=== PATIENT | male | born 1955 | race Two or more races ===

== ENCOUNTER 2017-02-24 09:14 | Inpatient (IN) | payer MEDICAID ==
[~2017-02-24] VITALS: Ht 172.7 cm; Wt 75.8 kg
[~2017-02-24 09:14] MED LIST: DICL25TA PO; DOCU-137 PO; ENAL2.5T; ETOD400T PO; FENO145T20 PO; FER325T PO; GABA300C8 PO; GLIP-116; HYDR-3546 OR; INSUPOW
[2017-02-24 09:51] LABS: Basophils # (auto) 0 uL; Basophils % (auto) 0.4 % (0.0-2.0); Eosinophils # (auto) 0 uL; Eosinophils % (auto) 0.6 % (0.0-7.0); Hematocrit 30.9 % (41.0-53.0); Lymphocytes # (auto) 1.9 uL; Lymphocytes % (auto) 24.3 % (10.0-50.0); Mean Corpuscular Hemoglobin 31.3 pg (28.0-32.0); Mean Corpuscular Hgb Conc. 32.4 g/dL (32.0-36.0); Mean Corpuscular Volume 96.7 fL (80.0-100.0); Mean Platelet Volume 7.7 fL (7.4-10.4); Monocytes # (auto) 0.5 uL; Monocytes % (auto) 6.9 % (0.0-12.0); Neutrophils # (auto) 5.3 uL; Neutrophils % (auto) 67.8 % (37.0-80.0); Platelet Count (auto) 288 10^3/uL (140-450); Red Cell Distribution Width 14.6 % (11.6-16.0); White Blood Cell 7.9 10^3/uL (4.4-10.8)
[2017-02-24 10:09] LABS: BUN/Creatinine Ratio 28.2; Calcium 8.2 mg/dL (8.5-10.1); Potassium 4.4 mmol/L (3.5-5.1)
[2017-02-24] MEDS ORDERED: FUROSEMIDE 40 MG/4 ML VIAL IV ONE (15:45)
[2017-02-24] MEDS ORDERED: MORPHINE SULFATE 4 MG/ML SYRG IV ONE (15:45)
[2017-02-24] MEDS ORDERED: ASPirin 81 mg TAB PO ONE (15:45)
[2017-02-24] MEDS ORDERED: ONDANSETRON HCL 4 MG/2 ML VIAL IV ONE (15:45)
[2017-02-24] MEDS ORDERED: FUROSEMIDE 40 MG/4 ML VIAL ONE (15:53)
[2017-02-24 16:24] LABS: Magnesium 2.3 mg/dL (1.6-2.6)
[2017-02-24 16:58] LABS: B-Type Natriuretic Peptide 658.19 pg/mL (0-100); Temperature: 23.1 C (20.0-25.0)
[2017-02-24] MEDS ORDERED: DOCUSATE SOD 100 MG CAP PO PRN (18:45)
[2017-02-24] MEDS ORDERED: DEXTROSE (50%) 50ML SYRG IV PRN (18:45)
[2017-02-24] MEDS ORDERED: ACETAMINOPHEN 325 MG TAB PO PRN (18:45)
[2017-02-24] MEDS ORDERED: NITROGLYCERIN 0.4 MG SL TAB SL PRN (18:45)
[2017-02-24] MEDS ORDERED: TEMAZEPAM 15 MG CAP PO PRN (18:45)
[2017-02-24] MEDS ORDERED: MORPHINE SULF INJ 2 MG/ML SYRINGE 1ML IV PRN (18:45)
[2017-02-24] MEDS ORDERED: ONDANSETRON HCL 4 MG/2 ML VIAL IV PRN (18:45)
[2017-02-24] MEDS: MULTIPLE VITAMIN TAB PO SCH (19:01)
[2017-02-24 21:54] VITALS: BP 146/72
[2017-02-24] MEDS ORDERED: InsuLIN REG 1unit/0.01ml Soln (100units/ml) SC SCH (22:00)
[2017-02-24] MEDS ORDERED: ACCU-CHEK COMFORT CURVE STRIP VI SCH (22:00)
[2017-02-24] MEDS: POTASSIUM CHL 10 Meq TABLET PO SCH (22:39)
[2017-02-24] MEDS: SODIUM CHLOR 0.9% PF (SALINE LOCK) 10ML VIAL IV SCH (22:39)
[2017-02-24] MEDS: FAMOTIDINE 20 MG TAB PO SCH (22:40)
[2017-02-24] MEDS: GABAPENTIN 300 MG CAP PO SCH (22:40)
[2017-02-24] MEDS: CYCLOBENZAPRINE HCL 10 MG TAB PO SCH (22:40)
[2017-02-24] MEDS: ENALAPRIL MALEATE 2.5 MG TAB PO SCH (22:41)
[2017-02-24] MEDS: oxyCODONE ER 20 MG TAB PO SCH (22:41)
[2017-02-24] MEDS: IBUPROFEN 800 MG TAB PO SCH (22:41)
[2017-02-24] MEDS: INSULIN DETEMIR(LEVEMIR) 1unit/0.01ml Soln (100units/ml) SC SCH (23:06)
[2017-02-25] VITALS (7 sets, daily range): BP systolic 98–146; BP diastolic 55–72
[2017-02-25] MEDS ORDERED: DEXTROSE (50%) 50ML SYRG IV PRN (01:30)
[2017-02-25] MEDS: ACCU-CHEK COMFORT CURVE STRIP VI SCH ×5 (04:06→21:44)
[2017-02-25] MEDS: InsuLIN REG 1unit/0.01ml Soln (100units/ml) SC SCH ×5 (04:06→20:00)
[2017-02-25 05:51] LABS: Basophils # (auto) 0.1 uL; Basophils % (auto) 0.8 % (0.0-2.0); Eosinophils # (auto) 0.1 uL; Hematocrit 31.6 % (41.0-53.0); Hemoglobin 10.3 g/dL (13.5-17.5); Lymphocytes # (auto) 3.5 uL; Lymphocytes % (auto) 42.6 % (10.0-50.0); Mean Corpuscular Hemoglobin 31.4 pg (28.0-32.0); Mean Corpuscular Hgb Conc. 32.5 g/dL (32.0-36.0); Mean Corpuscular Volume 96.6 fL (80.0-100.0); Mean Platelet Volume 7.9 fL (7.4-10.4); Monocytes # (auto) 0.5 uL; Monocytes % (auto) 6.6 % (0.0-12.0); Platelet Count (auto) 302 10^3/uL (140-450); Red Cell Distribution Width 14.6 % (11.6-16.0); White Blood Cell 8.1 10^3/uL (4.4-10.8)
[2017-02-25] MEDS: FUROSEMIDE 40 MG/4 ML VIAL IV SCH ×2 (06:05→18:29)
[2017-02-25] MEDS: CYCLOBENZAPRINE HCL 10 MG TAB PO SCH ×3 (06:05→22:35)
[2017-02-25] MEDS: SODIUM CHLOR 0.9% PF (SALINE LOCK) 10ML VIAL IV SCH ×3 (06:05→22:38)
[2017-02-25 06:15] LABS: Chloride 109 mmol/L (98-107); Potassium 3.7 mmol/L (3.5-5.1); Sodium 145 mmol/L (136-145)
[2017-02-25] MEDS: glipiZIDE 5 MG TAB PO SCH ×2 (06:18→18:00)
[2017-02-25 06:23] LABS: Albumin 2.9 g/dL (3.4-5.0); Anion Gap 9 (5-15); Aspartate Aminotransferase 15 U/L (15-37); BUN/Creatinine Ratio 34.8; Blood Urea Nitrogen 24 mg/dL (7-18); Calcium 8.4 mg/dL (8.5-10.1); Carbon Dioxide 27 mmol/L (21-32); GFR African American 149 mL/min; GFR Non-African American 123 mL/min; Glucose 109 mg/dL (74-106)
[2017-02-25 06:30] LABS: Alkaline Phosphatase 68 U/L (45-117); Bilirubin, Total 0.3 mg/dL (0.2-1.0)
[2017-02-25] MEDS ORDERED: InsuLIN REG 1unit/0.01ml Soln (100units/ml) SC SCH (07:00)
[2017-02-25] MEDS: ENALAPRIL MALEATE 2.5 MG TAB PO SCH ×2 (10:00→22:37)
[2017-02-25] MEDS: INSULIN DETEMIR(LEVEMIR) 1unit/0.01ml Soln (100units/ml) SC SCH ×2 (10:00→22:39)
[2017-02-25] MEDS: MULTIPLE VITAMIN TAB PO SCH (11:22)
[2017-02-25] MEDS: oxyCODONE ER 20 MG TAB PO SCH ×2 (11:22→22:37)
[2017-02-25] MEDS: IBUPROFEN 800 MG TAB PO SCH ×2 (11:22→22:38)
[2017-02-25] MEDS: GABAPENTIN 300 MG CAP PO SCH ×2 (11:22→22:35)
[2017-02-25] MEDS: POTASSIUM CHL 10 Meq TABLET PO SCH ×2 (11:22→22:36)
[2017-02-25] MEDS: FAMOTIDINE 20 MG TAB PO SCH ×2 (11:22→22:35)
[2017-02-25] MEDS: OXYCODONE W/ ACETAMINOPHEN 5/325MG TABLET PO PRN ×2 (13:41→18:30)
[2017-02-26] MEDS: ACCU-CHEK COMFORT CURVE STRIP VI SCH ×4 (00:41→11:49)
[2017-02-26 05:00] VITALS: BP 112/65
[2017-02-26] MEDS: InsuLIN REG 1unit/0.01ml Soln (100units/ml) SC SCH ×4 (05:18→11:50)
[2017-02-26] MEDS: CYCLOBENZAPRINE HCL 10 MG TAB PO SCH ×2 (06:00→13:50)
[2017-02-26] MEDS: SODIUM CHLOR 0.9% PF (SALINE LOCK) 10ML VIAL IV SCH ×2 (06:01→13:50)
[2017-02-26] MEDS: FUROSEMIDE 40 MG/4 ML VIAL IV SCH (06:01)
[2017-02-26] MEDS: glipiZIDE 5 MG TAB PO SCH (06:01)
[2017-02-26 06:31] LABS: Basophils # (auto) 0 uL; Basophils % (auto) 0.5 % (0.0-2.0); Eosinophils # (auto) 0.1 uL; Eosinophils % (auto) 1.2 % (0.0-7.0); Hematocrit 33.4 % (41.0-53.0); Hemoglobin 11.1 g/dL (13.5-17.5); Lymphocytes # (auto) 3.8 uL; Lymphocytes % (auto) 41.4 % (10.0-50.0); Mean Corpuscular Hemoglobin 31.9 pg (28.0-32.0); Mean Corpuscular Hgb Conc. 33.3 g/dL (32.0-36.0); Mean Platelet Volume 7.5 fL (7.4-10.4); Monocytes # (auto) 0.7 uL; Monocytes % (auto) 7.7 % (0.0-12.0); Neutrophils # (auto) 4.5 uL; Neutrophils % (auto) 49.2 % (37.0-80.0); Platelet Count (auto) 335 10^3/uL (140-450); Red Cell Distribution Width 14.5 % (11.6-16.0); White Blood Cell 9.1 10^3/uL (4.4-10.8)
[2017-02-26 06:57] LABS: Albumin 2.9 g/dL (3.4-5.0); BUN/Creatinine Ratio 39.5; Bilirubin, Total 0.5 mg/dL (0.2-1.0); Calcium 8.7 mg/dL (8.5-10.1); Potassium 3.6 mmol/L (3.5-5.1); Total Protein 6.5 g/dL (6.4-8.2)
[2017-02-26 08:26] LABS: Urine Bilirubin Negative (Negative); Urine Blood Negative /uL (Negative); Urine Color Colorless (Yellow); Urine Glucose Normal (Normal); Urine Ketone Negative (Negative); Urine Nitrite Negative (Negative); Urine RBC 3 /hpf (0 - 3); Urine Squamous Epithelial Cell FEW /hpf (<5); Urine Urobilinogen Normal (Negative)
[2017-02-26] MEDS: ENALAPRIL MALEATE 2.5 MG TAB PO SCH (09:19)
[2017-02-26] MEDS: INSULIN DETEMIR(LEVEMIR) 1unit/0.01ml Soln (100units/ml) SC SCH (09:20)
[2017-02-26 09:24] VITALS: BP 92/54
[2017-02-26] MEDS: POTASSIUM CHL 10 Meq TABLET PO SCH (10:37)
[2017-02-26] MEDS: MULTIPLE VITAMIN TAB PO SCH (10:37)
[2017-02-26] MEDS: GABAPENTIN 300 MG CAP PO SCH (10:37)
[2017-02-26] MEDS: IBUPROFEN 800 MG TAB PO SCH (10:37)
[2017-02-26] MEDS: oxyCODONE ER 20 MG TAB PO SCH (10:38)
[2017-02-26] MEDS: FAMOTIDINE 20 MG TAB PO SCH (10:38)
[2017-02-26 12:30] VITALS: BP 118/71
[2017-02-26 14:15] VITALS: BP 92/54
== END 2017-02-26 18:30 | disposition home or self-care (01) | DRG 194 ==
LOC: ER 09:18 → TELE 19:09 → TELE-WESTW 21:27
PROVIDERS: ADMIT Internal Medicine; ATTEND Internal Medicine
DX: I11.0 Hypertensive heart disease with heart failure (principal); E44.0 Moderate protein-calorie malnutrition; E83.51 Hypocalcemia; D63.8 Anemia in other chronic diseases classified elsewhere; E10.9 Type 1 diabetes mellitus without complications; E78.5 Hyperlipidemia, unspecified; I50.43 Acute on chronic combined systolic (congestive) and diastolic (congestive) heart failure; M94.0 Chondrocostal junction syndrome [Tietze]; M19.90 Unspecified osteoarthritis, unspecified site; M79.7 Fibromyalgia; Z82.49 Family history of ischemic heart disease and other diseases of the circulatory system; Z68.25 Body mass index [BMI] 25.0-25.9, adult; Z83.3 Family history of diabetes mellitus; Z79.899 Other long term (current) drug therapy; Z90.89 Acquired absence of other organs
CPT/HCPCS: 36415; 71010; 80048; 80053; 81001; 82962; 83036; 83735; 83880; 84484; 85025; 87081; 87086; 93005; 93306; 93970; 94761; 96374; 96375; J1815; J2405

== ENCOUNTER 2017-03-18 19:43 | Emergency (ER) | payer MEDICAID ==
[~2017-03-18] VITALS: Ht 172.7 cm; Wt 78.9 kg
[2017-03-18 20:57] LABS: Basophils # (auto) 0 uL; Basophils % (auto) 0.6 % (0.0-2.0); Eosinophils # (auto) 0 uL; Eosinophils % (auto) 0.2 % (0.0-7.0); Hematocrit 31.5 % (41.0-53.0); Hemoglobin 10.7 g/dL (13.5-17.5); Lymphocytes # (auto) 1.8 uL; Lymphocytes % (auto) 22.6 % (10.0-50.0); Mean Corpuscular Hemoglobin 32.1 pg (28.0-32.0); Mean Corpuscular Volume 94.4 fL (80.0-100.0); Mean Platelet Volume 7.7 fL (7.4-10.4); Monocytes # (auto) 0.5 uL; Neutrophils # (auto) 5.8 uL; Neutrophils % (auto) 70.6 % (37.0-80.0); Platelet Count (auto) 295 10^3/uL (140-450); Red Cell Distribution Width 13.9 % (11.6-16.0); White Blood Cell 8.2 10^3/uL (4.4-10.8)
[2017-03-18 21:11] LABS: INR 0.92 (0.9-1.15); Partial Thromboplastin Time 25.7 sec (22.64-33.71); Prothrombin Time 9.9 sec (9.37-12.3)
[2017-03-18 21:19] LABS: Albumin 3.7 g/dL (3.4-5.0); Anion Gap 7 (5-15); Aspartate Aminotransferase 14 U/L (15-37); Blood Urea Nitrogen 24 mg/dL (7-18); Calcium 8.3 mg/dL (8.5-10.1); Carbon Dioxide 25 mmol/L (21-32); Chloride 107 mmol/L (98-107); GFR African American 79 mL/min; GFR Non-African American 65 mL/min; Glucose 380 mg/dL (74-106); Magnesium 2.3 mg/dL (1.6-2.6); Potassium 4.6 mmol/L (3.5-5.1); Sodium 139 mmol/L (136-145)
[2017-03-18 21:24] LABS: Alkaline Phosphatase 128 U/L (45-117); Bilirubin, Total 0.4 mg/dL (0.2-1.0); Total Protein 7.1 g/dL (6.4-8.2)
[2017-03-18 21:34] LABS: B-Type Natriuretic Peptide 121.68 pg/mL (0-100); Temperature: 22.2 C (20.0-25.0)
[2017-03-18 22:34] LABS: Urine Bilirubin Negative (Negative); Urine Blood Negative /uL (Negative); Urine Color Yellow (Yellow); Urine Ketone Negative (Negative); Urine Nitrite Negative (Negative); Urine RBC 1 /hpf (0 - 3); Urine Squamous Epithelial Cell FEW /hpf (<5); Urine Urobilinogen Normal (Negative); Urine pH 5.5 (5.0-8.0)
[2017-03-18 22:35] LABS: Urine Glucose 4+ mg/dL (Normal)
[2017-03-19] MEDS ORDERED: InsuLIN REG 1unit/0.01ml Soln (100units/ml) IV ONE (01:15)
[2017-03-19] MEDS ORDERED: MORPHINE SULFATE 10 MG/ML INJ 1ML SDV IV ONE (01:15)
[2017-03-19] MEDS ORDERED: ONDANSETRON HCL 4 MG/2 ML VIAL IV ONE (01:15)
[2017-03-19] MEDS ORDERED: KETOROLAC TROMETH 30 MG/ML 1ML VIAL IV ONE (01:15)
[2017-03-19 04:38] VITALS: BP 162/77
== END 2017-03-19 04:42 | disposition home or self-care (01) ==
LOC: ER 19:44
DX: R07.89 Other chest pain (principal); M54.32 Sciatica, left side; E11.9 Type 2 diabetes mellitus without complications; I10 Essential (primary) hypertension; M79.605 Pain in left leg; G40.909 Epilepsy, unspecified, not intractable, without status epilepticus; E78.5 Hyperlipidemia, unspecified; M19.90 Unspecified osteoarthritis, unspecified site; R06.02 Shortness of breath
CPT/HCPCS: 36415; 71010; 80053; 81001; 82962; 83735; 83880; 84484; 85025; 85610; 85730; 93971; 96374; 96375; 99285; J1815; J1885; J2270; J2405; 93005

== ENCOUNTER 2017-05-10 19:54 | Emergency (ER) | payer MEDICAID ==
[~2017-05-10] VITALS: Ht 172.7 cm; Wt 78.0 kg
[~2017-05-10 19:54] MED LIST changes: +GABA-497 PO; -GABA300C8 PO
[2017-05-10] MEDS ORDERED: cloNIDine HCL 0.1 MG TAB ONE (20:17)
[2017-05-10] MEDS ORDERED: cloNIDine HCL 0.1 MG TAB PO ONE (20:30)
[2017-05-11] MEDS ORDERED: KETOROLAC TROMETH 60MG/2ML VIAL IM ONE (01:30)
[2017-05-11 01:53] LABS: Urine Bilirubin Negative (Negative); Urine Blood Negative /uL (Negative); Urine Color Yellow (Yellow); Urine Hyaline Cast FEW /lpf (0 - 2); Urine Ketone Negative (Negative); Urine Nitrite Negative (Negative); Urine RBC 2 /hpf (0 - 3); Urine Squamous Epithelial Cell FEW /hpf (<5); Urine Urobilinogen Normal (Negative)
[2017-05-11 01:57] LABS: Urine Glucose 4+ mg/dL (Normal)
[2017-05-11 02:52] LABS: Basophils # (auto) 0.1 uL; Basophils % (auto) 0.5 % (0.0-2.0); CONDITION Y; Eosinophils # (auto) 0 uL; Eosinophils % (auto) 0.5 % (0.0-7.0); Hematocrit 32.5 % (41.0-53.0); Hemoglobin 10.7 g/dL (13.5-17.5); Lymphocytes # (auto) 3.4 uL; Lymphocytes % (auto) 33.5 % (10.0-50.0); Mean Corpuscular Hemoglobin 31.3 pg (28.0-32.0); Mean Platelet Volume 9.6 fL (7.4-10.4); Monocytes # (auto) 0.6 uL; Monocytes % (auto) 6.4 % (0.0-12.0); Neutrophils # (auto) 5.9 uL; Neutrophils % (auto) 59.1 % (37.0-80.0); Platelet Count (auto) 233 10^3/uL (140-450); Red Cell Distribution Width 13.7 % (11.6-16.0)
[2017-05-11 02:59] LABS: Albumin 3.4 g/dL (3.4-5.0); Calcium 8.4 mg/dL (8.5-10.1); Potassium 4.1 mmol/L (3.5-5.1)
[2017-05-11 03:02] LABS: Bilirubin, Total 0.5 mg/dL (0.2-1.0); Total Protein 7.1 g/dL (6.4-8.2)
[2017-05-11 04:30] VITALS: BP 114/60
== END 2017-05-11 04:34 | disposition home or self-care (01) ==
LOC: ER 19:54
DX: M19.90 Unspecified osteoarthritis, unspecified site (principal); M25.551 Pain in right hip; D64.9 Anemia, unspecified; M54.5 Low back pain; E11.9 Type 2 diabetes mellitus without complications; E78.5 Hyperlipidemia, unspecified; I10 Essential (primary) hypertension; Z79.4 Long term (current) use of insulin; Z90.49 Acquired absence of other specified parts of digestive tract; Z87.891 Personal history of nicotine dependence
CPT/HCPCS: 36415; 72100; 73502; 80053; 81001; 82962; 85025; 96372; 99285; J1885

== ENCOUNTER 2017-06-05 14:13 | Inpatient (IN) | payer MEDICAID ==
[~2017-06-05] VITALS: Ht 172.7 cm; Wt 75.5 kg
[2017-06-05 15:25] LABS: Basophils # (auto) 0 uL; Basophils % (auto) 0.2 % (0.0-2.0); CONDITION Y; Eosinophils # (auto) 0 uL; Eosinophils % (auto) 0.2 % (0.0-7.0); Hematocrit 38.1 % (41.0-53.0); Hemoglobin 12.8 g/dL (13.5-17.5); Lymphocytes # (auto) 1.4 uL; Lymphocytes % (auto) 17.6 % (10.0-50.0); Mean Corpuscular Hemoglobin 31.4 pg (28.0-32.0); Mean Corpuscular Hgb Conc. 33.6 g/dL (32.0-36.0); Mean Corpuscular Volume 93.3 fL (80.0-100.0); Mean Platelet Volume 9.6 fL (7.4-10.4); Monocytes # (auto) 0.4 uL; Monocytes % (auto) 4.9 % (0.0-12.0); Neutrophils # (auto) 5.9 uL; Neutrophils % (auto) 77.1 % (37.0-80.0); Platelet Count (auto) 256 10^3/uL (140-450); Red Cell Distribution Width 13.8 % (11.6-16.0); White Blood Cell 7.7 10^3/uL (4.4-10.8)
[2017-06-05 15:36] LABS: Albumin 3.3 g/dL (3.4-5.0); BUN/Creatinine Ratio 34.7; Potassium 4.7 mmol/L (3.5-5.1)
[2017-06-05 15:44] LABS: Bilirubin, Total 0.7 mg/dL (0.2-1.0); Total Protein 7.2 g/dL (6.4-8.2)
[2017-06-05] MEDS ORDERED: SODIUM CHLORIDE 0.9% 1,000 ML IVB ONE (17:08)
[2017-06-05] MEDS ORDERED: SODIUM CHLORIDE 0.9% 1,000 ML IV ONE (17:15)
[2017-06-05 17:28] LABS: Allen Test Modified; Blood 02Sat 95.3 % (96-100); Blood COHb 0.1 % (0.5-1.5); Blood MetHb 0.3 % (0.0-1.5); HCO3 17.6 mmol/L (22-26.0); HHb 4.7 % (0.0-5.0); MODE ROOM AIR; O2Hb 94.9 % (94.0-97.0); PCO2 29.8 mmHg (35.0-45.0); PCO2(T) 29.8 mmHg (35.0-45.0); PO2 84.7 mmHg (80.0-100.0); PO2(T) 84.7 mmHg (80.0-100.0); Sample Type Arterial
[2017-06-05 17:40] LABS: Magnesium 2.7 mg/dL (1.6-2.6)
[2017-06-05] MEDS ORDERED: DEXTROSE (50%) 50ML SYRG IV PRN ×2 (17:45→21:15)
[2017-06-05 17:48] LABS: INR 0.95 (0.9-1.15); Partial Thromboplastin Time 25.2 sec (22.64-33.71); Prothrombin Time 10.3 sec (9.37-12.3)
[2017-06-05] MEDS ORDERED: InsuLIN R (HUMAN) 100 UNITS in SODIUM CHL 0.9% 99 ML IV SCH (18:15)
[2017-06-05] MEDS: ACCU-CHEK COMFORT CURVE STRIP VI SCH ×4 (19:30→22:30)
[2017-06-05] MEDS: SODIUM CHLORIDE 0.9% 1,000 ML IV SCH ×3 (19:31→21:13)
[2017-06-05] MEDS ORDERED: LACTULOSE 20Gm/30ML SOLN PO PRN (21:15)
[2017-06-05] MEDS ORDERED: MORPHINE SULF INJ 2 MG/ML SYRINGE 1ML IV PRN (21:15)
[2017-06-05] MEDS ORDERED: NITROGLYCERIN 0.4 MG SL TAB SL PRN (21:15)
[2017-06-05] MEDS ORDERED: SODIUM CHLORIDE 0.9% 1,000 ML IV SCH ×2 (21:35→23:35)
[2017-06-05] MEDS: InsuLIN REG 1unit/0.01ml Soln (100units/ml) SC SCH (22:30)
[2017-06-05 23:01] LABS: BUN/Creatinine Ratio 45.5; Calcium 8.1 mg/dL (8.5-10.1); Potassium 3.5 mmol/L (3.5-5.1)
[2017-06-05 23:49] LABS: Urine Bilirubin Negative (Negative); Urine Blood TRACE /uL (Negative); Urine Color Yellow (Yellow); Urine Nitrite Negative (Negative); Urine RBC 1 /hpf (0 - 3); Urine Squamous Epithelial Cell FEW /hpf (<5); Urine Urobilinogen Normal (Negative)
[2017-06-05 23:56] LABS: Urine Glucose 4+ mg/dL (Normal); Urine Ketone 1+ (Negative)
[2017-06-06] MEDS: MORPHINE SULF INJ 2 MG/ML SYRINGE 1ML IV PRN ×5 (00:50→20:50)
[2017-06-06] MEDS: ACCU-CHEK COMFORT CURVE STRIP VI SCH ×5 (01:54→23:16)
[2017-06-06] MEDS: InsuLIN REG 1unit/0.01ml Soln (100units/ml) SC SCH ×6 (01:54→23:16)
[2017-06-06] MEDS: SODIUM CHLORIDE 0.9% 1,000 ML IV SCH ×4 (03:55→23:17)
[2017-06-06 05:30] VITALS: BP 107/55
[2017-06-06 06:42] LABS: BUN/Creatinine Ratio 48.9; Calcium 8.4 mg/dL (8.5-10.1); Potassium 3.6 mmol/L (3.5-5.1)
[2017-06-06 06:59] LABS: Basophils # (auto) 0 uL; Basophils % (auto) 0.5 % (0.0-2.0); CONDITION Y; Eosinophils # (auto) 0.1 uL; Eosinophils % (auto) 0.7 % (0.0-7.0); Hematocrit 31.6 % (41.0-53.0); Hemoglobin 10.9 g/dL (13.5-17.5); Lymphocytes # (auto) 3.4 uL; Lymphocytes % (auto) 41.7 % (10.0-50.0); Mean Corpuscular Hemoglobin 31.9 pg (28.0-32.0); Mean Corpuscular Hgb Conc. 34.5 g/dL (32.0-36.0); Mean Corpuscular Volume 92.6 fL (80.0-100.0); Mean Platelet Volume 8.8 fL (7.4-10.4); Monocytes # (auto) 0.5 uL; Monocytes % (auto) 6.6 % (0.0-12.0); Neutrophils # (auto) 4.1 uL; Neutrophils % (auto) 50.5 % (37.0-80.0); Platelet Count (auto) 230 10^3/uL (140-450); Red Cell Distribution Width 13.9 % (11.6-16.0); White Blood Cell 8.1 10^3/uL (4.4-10.8)
[2017-06-06 07:50] LABS: Albumin 2.8 g/dL (3.4-5.0); BUN/Creatinine Ratio 53.7; Bilirubin, Total 0.5 mg/dL (0.2-1.0); Calcium 8.1 mg/dL (8.5-10.1); Potassium 3.4 mmol/L (3.5-5.1); Total Protein 5.9 g/dL (6.4-8.2)
[2017-06-06 09:00] VITALS: BP 123/61
[2017-06-06] MEDS: PANTOPRAZOLE SODIUM 40 MG/10 ML VIAL IV SCH (09:58)
[2017-06-06] MEDS: ENALAPRIL MALEATE 10 MG TAB PO SCH (09:59)
[2017-06-06] MEDS ORDERED: POTASSIUM CHLORIDE 20 MEQ, LIDOCAINE 1% (LOCAL ANESTH.) 2 ML in SODIUM CHL 0.9% 100 ML IV ONE (10:00)
[2017-06-06] MEDS: FUROSEMIDE 20 MG TAB PO SCH (10:00)
[2017-06-06 13:00] VITALS: BP 121/68
[2017-06-06 14:16] LABS: BUN/Creatinine Ratio 31.4; Calcium 8.1 mg/dL (8.5-10.1); Potassium 3.7 mmol/L (3.5-5.1)
[2017-06-06 17:02] VITALS: BP 138/72
[2017-06-06 22:00] VITALS: BP 134/81
[2017-06-06] MEDS ORDERED: ACETAMINOPHEN 325 MG TAB PO ONE (22:06)
[2017-06-06] MEDS ORDERED: ACETAMINOPHEN 325 MG TAB PO PRN (22:15)
[2017-06-07] MEDS: MORPHINE SULF INJ 2 MG/ML SYRINGE 1ML IV PRN ×3 (01:35→11:29)
[2017-06-07] MEDS: ONDANSETRON HCL 4 MG/2 ML VIAL IV PRN ×3 (01:35→11:29)
[2017-06-07 05:00] VITALS: BP 138/67
[2017-06-07] MEDS: ACCU-CHEK COMFORT CURVE STRIP VI SCH ×2 (05:38→11:19)
[2017-06-07] MEDS: InsuLIN REG 1unit/0.01ml Soln (100units/ml) SC SCH ×2 (05:39→11:29)
[2017-06-07] MEDS: SODIUM CHLORIDE 0.9% 1,000 ML IV SCH ×2 (06:03→11:19)
[2017-06-07 06:30] LABS: Basophils # (auto) 0 uL; Basophils % (auto) 0.5 % (0.0-2.0); CONDITION Y; Eosinophils # (auto) 0 uL; Eosinophils % (auto) 0.7 % (0.0-7.0); Hematocrit 37.3 % (41.0-53.0); Hemoglobin 12.5 g/dL (13.5-17.5); Lymphocytes # (auto) 3.2 uL; Lymphocytes % (auto) 44.1 % (10.0-50.0); Mean Corpuscular Hemoglobin 31.8 pg (28.0-32.0); Mean Corpuscular Hgb Conc. 33.4 g/dL (32.0-36.0); Mean Platelet Volume 9.5 fL (7.4-10.4); Monocytes # (auto) 0.4 uL; Monocytes % (auto) 5.6 % (0.0-12.0); Neutrophils # (auto) 3.6 uL; Neutrophils % (auto) 49.1 % (37.0-80.0); Platelet Count (auto) 235 10^3/uL (140-450); Red Cell Distribution Width 14.3 % (11.6-16.0); White Blood Cell 7.3 10^3/uL (4.4-10.8)
[2017-06-07 07:01] LABS: Albumin 3.1 g/dL (3.4-5.0); BUN/Creatinine Ratio 24.1; Bilirubin, Total 0.4 mg/dL (0.2-1.0); Calcium 8.2 mg/dL (8.5-10.1); Magnesium 2.4 mg/dL (1.6-2.6); Potassium 3.9 mmol/L (3.5-5.1); Total Protein 6.7 g/dL (6.4-8.2)
[2017-06-07 09:00] VITALS: BP 129/70
[2017-06-07] MEDS: PANTOPRAZOLE SODIUM 40 MG/10 ML VIAL IV SCH (09:46)
[2017-06-07] MEDS: ENALAPRIL MALEATE 10 MG TAB PO SCH (09:47)
[2017-06-07] MEDS: FUROSEMIDE 20 MG TAB PO SCH (09:49)
[2017-06-07 13:00] VITALS: BP 132/72
[2017-06-07 13:43] VITALS: BP 132/72
[2017-06-07 14:02] VITALS: BP 132/72
== END 2017-06-07 14:40 | disposition home or self-care (01) | DRG 249 ==
LOC: ER 14:13 → TELE 14:14 → TELE-CENTR 23:43
PROVIDERS: ADMIT Family Medicine; ATTEND Internal Medicine
DX: K52.9 Noninfective gastroenteritis and colitis, unspecified (principal); E11.40 Type 2 diabetes mellitus with diabetic neuropathy, unspecified; E44.0 Moderate protein-calorie malnutrition; E11.65 Type 2 diabetes mellitus with hyperglycemia; I10 Essential (primary) hypertension; M19.90 Unspecified osteoarthritis, unspecified site; E87.6 Hypokalemia; E86.0 Dehydration; E87.1 Hypo-osmolality and hyponatremia; G40.909 Epilepsy, unspecified, not intractable, without status epilepticus; Z82.49 Family history of ischemic heart disease and other diseases of the circulatory system; Z83.3 Family history of diabetes mellitus; Z68.25 Body mass index [BMI] 25.0-25.9, adult
CPT/HCPCS: 36415; 36600; 71010; 74176; 80048; 80053; 81001; 82010; 82150; 82805; 82962; 83036; 83690; 83735; 85025; 85610; 85730; 93005; 94761; 96361; 96365; 96375; C9113; J1815; J2001; J2405

== ENCOUNTER 2017-06-22 10:05 | Emergency (ER) | payer MEDICAID ==
[~2017-06-22 10:05] MED LIST changes: -DICL25TA PO
[2017-06-22 10:14] VITALS: BP 114/66
== END 2017-06-22 11:39 | disposition home or self-care (01) ==
LOC: ER 10:05
DX: S90.32XA Contusion of left foot, initial encounter (principal); M19.90 Unspecified osteoarthritis, unspecified site; E11.9 Type 2 diabetes mellitus without complications; I10 Essential (primary) hypertension; E78.5 Hyperlipidemia, unspecified; Z90.89 Acquired absence of other organs; W01.0XXA Fall on same level from slipping, tripping and stumbling without subsequent striking against object, initial encounter; Y93.89 Activity, other specified; Y92.89 Other specified places as the place of occurrence of the external cause; Y99.8 Other external cause status
CPT/HCPCS: 73502; 73562; 73630; 99284; J7030

== ENCOUNTER 2017-07-16 13:44 | Observation (INO) | payer MEDICAID ==
[~2017-07-16] VITALS: Ht 172.7 cm; Wt 74.8 kg
[2017-07-16 14:28] LABS: Basophils # (auto) 0.1 uL; Basophils % (auto) 1.1 % (0.0-2.0); Eosinophils # (auto) 0.2 uL; Eosinophils % (auto) 2.4 % (0.0-7.0); Hematocrit 35.8 % (41.0-53.0); Lymphocytes % (auto) 43.1 % (10.0-50.0); Mean Corpuscular Hemoglobin 32.2 pg (28.0-32.0); Mean Corpuscular Hgb Conc. 33.5 g/dL (32.0-36.0); Mean Corpuscular Volume 96.1 fL (80.0-100.0); Monocytes # (auto) 0.5 uL; Monocytes % (auto) 6.6 % (0.0-12.0); Neutrophils # (auto) 3.3 uL; Neutrophils % (auto) 46.8 % (37.0-80.0); Platelet Count (auto) 241 10^3/uL (140-450); Red Cell Distribution Width 14.9 % (11.6-16.0)
[2017-07-16] MEDS ORDERED: ASPirin 81 mg TAB PO ONE (14:30)
[2017-07-16 14:56] LABS: INR 0.94 (0.9-1.15); Partial Thromboplastin Time 26.7 sec (22.64-33.71); Prothrombin Time 10.2 sec (9.37-12.3)
[2017-07-16 15:00] LABS: Albumin 3.6 g/dL (3.4-5.0); Alkaline Phosphatase 67 U/L (45-117); Anion Gap 8 (5-15); Aspartate Aminotransferase 16 U/L (15-37); BUN/Creatinine Ratio 26.4; Bilirubin, Total 0.5 mg/dL (0.2-1.0); Blood Urea Nitrogen 23 mg/dL (7-18); Carbon Dioxide 24 mmol/L (21-32); Chloride 109 mmol/L (98-107); GFR African American 114 mL/min; GFR Non-African American 95 mL/min; Glucose 146 mg/dL (74-106); Magnesium 2.5 mg/dL (1.6-2.6); Potassium 4.1 mmol/L (3.5-5.1); Sodium 141 mmol/L (136-145); Total Protein 7.3 g/dL (6.4-8.2)
[2017-07-16 15:11] LABS: B-Type Natriuretic Peptide 62.54 pg/mL (0-100)
[2017-07-16 15:22] LABS: Temperature: 22.3 C (20.0-25.0)
[2017-07-16] MEDS ORDERED: HYDROcodone-ACET 10/325MG TAB PO ONE (15:45)
[2017-07-16 17:08] VITALS: BP 146/77
[2017-07-16] MEDS ORDERED: MORPHINE SULF INJ 2 MG/ML SYRINGE 1ML IM ONE (17:15)
[2017-07-16] MEDS ORDERED: PROMETHAZINE HCL 25 MG/ML 1ML IM ONE (17:15)
== END 2017-07-16 19:06 | disposition home or self-care (01) | DRG 203 ==
LOC: ER 13:44 → OVERFLOW 14:29 → ER 19:06
PROVIDERS: ADMIT Family Medicine; ATTEND Family Medicine
DX: R07.89 Other chest pain (principal); E11.40 Type 2 diabetes mellitus with diabetic neuropathy, unspecified; I10 Essential (primary) hypertension; R94.6 Abnormal results of thyroid function studies; M19.90 Unspecified osteoarthritis, unspecified site; D64.9 Anemia, unspecified; E78.5 Hyperlipidemia, unspecified; Z82.49 Family history of ischemic heart disease and other diseases of the circulatory system; Z83.3 Family history of diabetes mellitus; Z87.891 Personal history of nicotine dependence
CPT/HCPCS: 36415; 71010; 80053; 83735; 83880; 84443; 84484; 85025; 85379; 85610; 85730; 93005; 96372; 99285; G0378; J2270; J2550

== ENCOUNTER 2018-07-07 16:33 | Emergency (ER) | payer MEDICARE, MEDICAID ==
[~2018-07-07] VITALS: Ht 172.7 cm; Wt 68.9 kg
[~2018-07-07 16:33] MED LIST changes: -DOCU-137 PO; -ETOD400T PO; -FENO145T20 PO; -FER325T PO; -GABA-497 PO; +GABA300C10 PO; -HYDR-3546 OR
[2018-07-07 19:00] LABS: Basophils # (auto) 0.1 uL; Basophils % (auto) 0.7 % (0.0-2.0); Eosinophils # (auto) 0 uL; Eosinophils % (auto) 0.4 % (0.0-7.0); Hematocrit 40.3 % (41.0-53.0); Hemoglobin 14.3 g/dL (13.5-17.5); Lymphocytes # (auto) 1.8 uL; Lymphocytes % (auto) 21.7 % (10.0-50.0); Mean Corpuscular Hemoglobin 33.6 pg (28.0-32.0); Mean Corpuscular Hgb Conc. 35.4 g/dL (32.0-36.0); Monocytes # (auto) 0.3 uL; Monocytes % (auto) 3.7 % (0.0-12.0); Neutrophils # (auto) 6.1 uL; Neutrophils % (auto) 73.5 % (37.0-80.0); Platelet Count (auto) 225 10^3/uL (140-450); Red Blood Cells 4.24 10^6/uL (4.5-5.90); Red Cell Distribution Width 12.9 % (11.8-14.3); White Blood Cell 8.3 10^3/uL (4.4-10.8)
[2018-07-07 19:15] LABS: Calcium 9.1 mg/dL (8.5-10.1)
[2018-07-07 19:19] LABS: Albumin 3.9 g/dL (3.4-5.0); BUN/Creatinine Ratio 23.2
[2018-07-07 19:22] LABS: Bilirubin, Total 0.7 mg/dL (0.2-1.0); Total Protein 8.2 g/dL (6.4-8.2)
[2018-07-07 21:16] VITALS: BP 143/76
== END 2018-07-07 21:20 | disposition home or self-care (01) ==
LOC: ER 16:35
DX: K59.00 Constipation, unspecified (principal); E11.9 Type 2 diabetes mellitus without complications; E78.5 Hyperlipidemia, unspecified; I10 Essential (primary) hypertension; M19.90 Unspecified osteoarthritis, unspecified site; Z87.891 Personal history of nicotine dependence; Z79.4 Long term (current) use of insulin
CPT/HCPCS: 36415; 74176; 80053; 85025; 93005; 99285; J7030

== ENCOUNTER 2020-04-14 18:05 | Emergency (ER) | payer OTHER, MEDICAID ==
[~2020-04-14] VITALS: Ht 172.7 cm; Wt 62.6 kg
[~2020-04-14 18:05] MED LIST changes: -GLIP-116; +GLIP10TA9; +LEVO500T21 PO; +PERCOT PO
[2020-04-14 18:34] VITALS: BP 141/50
== END 2020-04-14 20:23 | disposition home or self-care (01) ==
LOC: ER 18:05
DX: S96.911A Strain of unspecified muscle and tendon at ankle and foot level, right foot, initial encounter (principal); E11.9 Type 2 diabetes mellitus without complications; E78.5 Hyperlipidemia, unspecified; I10 Essential (primary) hypertension; Z87.891 Personal history of nicotine dependence; W18.39XA Other fall on same level, initial encounter; Y93.89 Activity, other specified; Y92.89 Other specified places as the place of occurrence of the external cause; Y99.8 Other external cause status
CPT/HCPCS: 71045; 73502; 73610; 73630

== ENCOUNTER 2020-06-26 15:16 | Emergency (ER) | payer OTHER, MEDICAID ==
[~2020-06-26] VITALS: Ht 172.7 cm; Wt 64.4 kg
[~2020-06-26 15:16] MED LIST changes: -ENAL2.5T; +ENAL2.5T7
[2020-06-26 15:54] VITALS: BP 141/76
[2020-06-26 17:10] LABS: Basophils # (auto) 0.1 10 ^3/uL (0-0.2); Basophils % (auto) 1.2 % (0.0-2.0); Eosinophils # (auto) 0.1 10 ^3/uL (0-0.8); Eosinophils % (auto) 1.4 % (0.0-7.0); Hematocrit 39.9 % (41.0-53.0); Hemoglobin 13.3 g/dL (13.5-17.5); Lymphocytes # (auto) 2.5 10 ^3/uL (0.4-5.4); Lymphocytes % (auto) 31.3 % (10.0-50.0); Mean Corpuscular Hemoglobin 31.3 pg (28.0-32.0); Mean Corpuscular Hgb Conc. 33.4 g/dL (32.0-36.0); Mean Corpuscular Volume 93.7 fL (80.0-100.0); Monocytes # (auto) 0.4 10 ^3/uL (0-1.3); Monocytes % (auto) 5.2 % (0.0-12.0); Neutrophils # (auto) 4.9 10 ^3/uL (1.6-8.6); Neutrophils % (auto) 60.9 % (37.0-80.0); Nucleated Red Blood Cells % 0.1 %; Platelet Count (auto) 273 10^3/uL (140-450); Red Blood Cells 4.25 10^6/uL (4.5-5.90); Red Cell Distribution Width 13.5 % (11.8-14.3); White Blood Cell 8.1 10^3/uL (4.4-10.8)
[2020-06-26 17:19] LABS: Anion Gap 7 (5-15); Blood Urea Nitrogen 19 mg/dL (7-18); Calcium 9.2 mg/dL (8.5-10.1); Carbon Dioxide 23 mmol/L (21-32); Chloride 108 mmol/L (98-107); Glucose 258 mg/dL (74-106); Potassium 3.8 mmol/L (3.5-5.1); Sodium 138 mmol/L (136-145)
[2020-06-26 17:25] LABS: Alanine Aminotransferase 19 U/L (16-61); Alkaline Phosphatase 94 U/L (45-117); Aspartate Aminotransferase 16 U/L (15-37); BUN/Creatinine Ratio 21.8; Bilirubin, Total 0.8 mg/dL (0.2-1.0); GFR African American 113 mL/min; GFR Non-African American 94 mL/min; Total Protein 7.8 g/dL (6.4-8.2)
[2020-06-26 20:05] LABS: Urine Bacteria NONE SEEN /hpf (None Seen); Urine Blood Negative /uL (Negative); Urine Hyaline Cast FEW /lpf (0 - 2); Urine Mucus FEW (None Seen); Urine Specific Gravity 1.025 (1.001-1.035); Urine WBC 11 /hpf (0 - 3)
== END 2020-06-26 19:25 | disposition left against medical advice (07) ==
LOC: ER 15:16
DX: R10.84 Generalized abdominal pain (principal); Z53.21 Procedure and treatment not carried out due to patient leaving prior to being seen by health care provider
CPT/HCPCS: 36415; 71045; 80053; 81001; 84484; 85025; 93005

== ENCOUNTER 2020-09-22 15:32 | Emergency (ER) | payer OTHER, MEDICAID ==
[~2020-09-22] VITALS: Ht 172.7 cm; Wt 61.2 kg
[2020-09-22 17:03] LABS: Basophils # (auto) 0.1 10 ^3/uL (0-0.2); Basophils % (auto) 1.2 % (0.0-2.0); Eosinophils # (auto) 0.2 10 ^3/uL (0-0.8); Eosinophils % (auto) 2.8 % (0.0-7.0); Hematocrit 34.7 % (41.0-53.0); Hemoglobin 11.6 g/dL (13.5-17.5); Lymphocytes # (auto) 1.7 10 ^3/uL (0.4-5.4); Lymphocytes % (auto) 26.8 % (10.0-50.0); Mean Corpuscular Hemoglobin 32.6 pg (28.0-32.0); Mean Corpuscular Hgb Conc. 33.5 g/dL (32.0-36.0); Mean Corpuscular Volume 97.2 fL (80.0-100.0); Monocytes # (auto) 0.5 10 ^3/uL (0-1.3); Monocytes % (auto) 7.2 % (0.0-12.0); Neutrophils # (auto) 3.9 10 ^3/uL (1.6-8.6); Platelet Count (auto) 278 10^3/uL (140-450); Red Blood Cells 3.57 10^6/uL (4.5-5.90); Red Cell Distribution Width 13.2 % (11.8-14.3); White Blood Cell 6.3 10^3/uL (4.4-10.8)
[2020-09-22 17:15] LABS: Partial Thromboplastin Time 25.2 sec (23.0-31.2)
[2020-09-22 17:20] LABS: Albumin 3.6 g/dL (3.4-5.0); Anion Gap 8 (5-15); Blood Urea Nitrogen 17 mg/dL (7-18); Calcium 8.9 mg/dL (8.5-10.1); Carbon Dioxide 24 mmol/L (21-32); Chloride 102 mmol/L (98-107); Potassium 4.3 mmol/L (3.5-5.1); Sodium 134 mmol/L (136-145)
[2020-09-22 17:29] LABS: Alanine Aminotransferase 24 U/L (16-61); Alkaline Phosphatase 138 U/L (45-117); Aspartate Aminotransferase 14 U/L (15-37); BUN/Creatinine Ratio 14.8; Bilirubin, Total 0.9 mg/dL (0.2-1.0); GFR African American 82 mL/min; GFR Non-African American 68 mL/min; Total Protein 7.5 g/dL (6.4-8.2)
[2020-09-22 17:37] LABS: Glucose 651 mg/dL (74-106)
[2020-09-22] MEDS ORDERED: DEXTROSE (50%) 50ML SYRG IV PRN (17:45)
[2020-09-22] MEDS ORDERED: InsuLIN R (HUMAN) 100 UNITS in SODIUM CHL 0.9% 99 ML IV SCH (17:45)
[2020-09-22] MEDS ORDERED: INSULIN LANTUS (GLARGINE) 1 /0.01ml (100units/ml) SC ONE (17:45)
[2020-09-22] MEDS ORDERED: SODIUM CHLORIDE 0.9% 1,000 ML IV SCH ×3 (17:45→23:45)
[2020-09-22] MEDS ORDERED: InsuLIN REG 1unit/0.01ml Soln (100units/ml) IV ONE (18:00)
[2020-09-22 18:53] LABS: Phosphorus 3.8 mg/dL (2.5-4.90)
[2020-09-22] MEDS: ACCU-CHEK COMFORT CURVE STRIP VI SCH ×2 (19:50→19:51)
[2020-09-22 19:52] VITALS: BP 142/87
[2020-09-23] MEDS ORDERED: INSULIN LANTUS (GLARGINE) 1 /0.01ml (100units/ml) SC SCH (10:00)
== END 2020-09-22 20:30 | disposition left against medical advice (07) ==
LOC: ER 15:32
DX: S05.12XA Contusion of eyeball and orbital tissues, left eye, initial encounter (principal); D64.9 Anemia, unspecified; K59.00 Constipation, unspecified; M48.01 Spinal stenosis, occipito-atlanto-axial region; E86.0 Dehydration; E11.65 Type 2 diabetes mellitus with hyperglycemia; I10 Essential (primary) hypertension; E78.5 Hyperlipidemia, unspecified; Z79.899 Other long term (current) drug therapy; W19.XXXA Unspecified fall, initial encounter; Y93.89 Activity, other specified; Y92.89 Other specified places as the place of occurrence of the external cause; Y99.8 Other external cause status
CPT/HCPCS: 36415; 36600; 70450; 70486; 71250; 72125; 72131; 74176; 80053; 82010; 82805; 82962; 83735; 83930; 84100; 84484; 85025; 85610; 85730; 93005; 96361; 96374; 99285; J1815

== ENCOUNTER 2021-12-29 17:42 | Inpatient (IN) | payer OTHER, MEDICAID ==
[~2021-12-29] VITALS: Ht 172.7 cm; Wt 61.2 kg
[~2021-12-29 17:42] MED LIST changes: -LEVO500T21 PO; +LEVO500T31 PO
[2021-12-29 19:18] LABS: Basophils # (auto) 0.1 10 ^3/uL (0-0.2); Basophils % (auto) 0.6 % (0.0-2.0); Eosinophils # (auto) 0 10 ^3/uL (0-0.8); Eosinophils % (auto) 0.3 % (0.0-7.0); Hematocrit 30.1 % (41.0-53.0); Hemoglobin 10.2 g/dL (13.5-17.5); Lymphocytes # (auto) 1.7 10 ^3/uL (0.4-5.4); Lymphocytes % (auto) 16.2 % (10.0-50.0); Mean Corpuscular Hemoglobin 32.7 pg (28.0-32.0); Mean Corpuscular Hgb Conc. 33.7 g/dL (32.0-36.0); Monocytes # (auto) 0.7 10 ^3/uL (0-1.3); Monocytes % (auto) 6.3 % (0.0-12.0); Neutrophils # (auto) 8.3 10 ^3/uL (1.6-8.6); Neutrophils % (auto) 76.6 % (37.0-80.0); Nucleated Red Blood Cells % 0.1 %; Red Blood Cells 3.11 10^6/uL (4.5-5.90); Red Cell Distribution Width 16.7 % (11.8-14.3); White Blood Cell 10.8 10^3/uL (4.4-10.8)
[2021-12-29 19:31] LABS: Calcium 8.6 mg/dL (8.5-10.1); Potassium 3.5 mmol/L (3.5-5.1)
[2021-12-29 19:36] LABS: BUN/Creatinine Ratio 18.5; Bilirubin, Total 0.6 mg/dL (0.2-1.0); Total Protein 7.1 g/dL (6.4-8.2)
[2021-12-29 23:42] LABS: Urine Bacteria NONE SEEN /hpf (None Seen); Urine Blood 1+ /uL (Negative); Urine Hyaline Cast FEW /lpf (0 - 2); Urine Specific Gravity 1.023 (1.001-1.035); Urine WBC 6 /hpf (0 - 3)
[2021-12-30] MEDS ORDERED: INSULIN LISPRO (HUMAN) 100 UNITS/ML ML SC ONE (09:30)
[2021-12-30] MEDS ORDERED: ONDANSETRON HCL 4 MG/2 ML VIAL IV PRN (13:00)
[2021-12-30] MEDS ORDERED: NITROGLYCERIN 0.4 MG SL TAB SL PRN (13:00)
[2021-12-30] MEDS ORDERED: DEXTROSE (50%) 50ML SYRG IV PRN ×2 (13:00→14:00)
[2021-12-30] MEDS ORDERED: MORPHINE SULFATE 4 MG/ML SYR/VIAL IV PRN (13:00)
[2021-12-30] MEDS ORDERED: MORPHINE SULFATE INJECTION 2 MG/ML SYRG IV PRN (13:00)
[2021-12-30] MEDS: GABAPENTIN 300 MG CAP PO SCH ×2 (14:51→21:51)
[2021-12-30] MEDS: HYDROcodone-ACET 5/325MG TAB PO PRN ×2 (15:59→20:40)
[2021-12-30] MEDS ORDERED: InsuLIN REG 1unit/0.01ml Soln (100units/ml) SC SCH ×2 (17:00→22:00)
[2021-12-30] MEDS ORDERED: ACCU-CHEK COMFORT CURVE STRIP VI SCH (17:00)
[2021-12-30] MEDS: ACCU-CHEK COMFORT CURVE STRIP VI SCH ×2 (17:53→21:51)
[2021-12-30] MEDS: InsuLIN REG 1unit/0.01ml Soln (100units/ml) SC SCH ×2 (17:55→22:05)
[2021-12-30] MEDS ORDERED: ATOR20TA50 PO (18:16)
[2021-12-30] MEDS ORDERED: NITR0.4S29 SL (18:16)
[2021-12-30] MEDS ORDERED: METF-929 PO (18:16)
[2021-12-30] MEDS ORDERED: CHOL20004 PO (18:16)
[2021-12-30] MEDS ORDERED: GLIP10TA9 PO (18:16)
[2021-12-30] MEDS ORDERED: AMIT25TA12 PO (18:16)
[2021-12-30] MEDS ORDERED: OMEP20TA PO (18:16)
[2021-12-30 20:00] VITALS: BP 138/76
[2021-12-30 22:02] VITALS: BP 138/76
[2021-12-31] MEDS: HYDROcodone-ACET 5/325MG TAB PO PRN ×4 (01:10→20:55)
[2021-12-31 05:45] VITALS: BP 112/67
[2021-12-31 05:56] LABS: Basophils # (auto) 0.1 10 ^3/uL (0-0.2); Basophils % (auto) 0.9 % (0.0-2.0); Eosinophils # (auto) 0.1 10 ^3/uL (0-0.8); Hematocrit 24.7 % (41.0-53.0); Hemoglobin 8.4 g/dL (13.5-17.5); Lymphocytes % (auto) 38.9 % (10.0-50.0); Mean Corpuscular Hemoglobin 32.5 pg (28.0-32.0); Mean Corpuscular Volume 95.3 fL (80.0-100.0); Monocytes # (auto) 0.6 10 ^3/uL (0-1.3); Monocytes % (auto) 8.3 % (0.0-12.0); Neutrophils # (auto) 3.9 10 ^3/uL (1.6-8.6); Neutrophils % (auto) 50.9 % (37.0-80.0); Nucleated Red Blood Cells % 0.1 %; Red Blood Cells 2.59 10^6/uL (4.5-5.90); Red Cell Distribution Width 17.2 % (11.8-14.3); White Blood Cell 7.6 10^3/uL (4.4-10.8)
[2021-12-31 06:13] LABS: Albumin 2.5 g/dL (3.4-5.0); Calcium 8.3 mg/dL (8.5-10.1); Potassium 3.8 mmol/L (3.5-5.1)
[2021-12-31] MEDS: GABAPENTIN 300 MG CAP PO SCH ×3 (06:14→21:53)
[2021-12-31] MEDS: DOCUSATE SOD 100 MG CAP PO PRN (06:14)
[2021-12-31 06:15] LABS: BUN/Creatinine Ratio 23.8
[2021-12-31 06:18] LABS: Bilirubin, Total 0.5 mg/dL (0.2-1.0); Total Protein 5.8 g/dL (6.4-8.2)
[2021-12-31] MEDS: ACCU-CHEK COMFORT CURVE STRIP VI SCH ×4 (06:56→21:53)
[2021-12-31] MEDS: InsuLIN REG 1unit/0.01ml Soln (100units/ml) SC SCH ×4 (06:59→21:55)
[2021-12-31 08:00] VITALS: BP_SYST 107; BP_SYST 138; BP_DIAS 59; BP_DIAS 76
[2021-12-31] MEDS: ENALAPRIL MALEATE 2.5 MG TAB PO SCH (10:00)
[2021-12-31] MEDS: ENOXAPARIN SOD 40 MG/0.4 ML SYRINGE SC SCH (10:05)
[2021-12-31 12:05] VITALS: BP 106/82
[2021-12-31] MEDS: PIPERACILLIN-TAZOB 3.375GM 100 ML IV SCH ×2 (13:53→21:53)
[2021-12-31 16:00] VITALS: BP 127/62
[2021-12-31 20:00] VITALS: BP 106/61
[2021-12-31 22:17] VITALS: BP 106/61
[2021-12-31] MEDS ORDERED: LORazepam 2MG/ML-1ML VIAL IV PRN (23:15)
[2021-12-31 23:48] LABS: Cholesterol 150 mg/dL (< 200)
[2021-12-31 23:51] LABS: HDL Cholesterol 41 mg/dL (40-59); Triglycerides 142 mg/dL (< 150)
[2022-01-01] VITALS (7 sets, daily range): BP systolic 95–108; BP diastolic 53–61
[2022-01-01] MEDS: HYDROcodone-ACET 5/325MG TAB PO PRN ×2 (02:02→09:45)
[2022-01-01] MEDS: GABAPENTIN 300 MG CAP PO SCH ×3 (06:38→21:02)
[2022-01-01] MEDS: PIPERACILLIN-TAZOB 3.375GM 100 ML IV SCH ×3 (06:38→21:01)
[2022-01-01] MEDS: ACCU-CHEK COMFORT CURVE STRIP VI SCH ×4 (06:38→21:06)
[2022-01-01] MEDS: InsuLIN REG 1unit/0.01ml Soln (100units/ml) SC SCH ×4 (06:52→21:06)
[2022-01-01] MEDS: ASPirin-EC 81 mg tab PO SCH (09:43)
[2022-01-01] MEDS: ENALAPRIL MALEATE 2.5 MG TAB PO SCH (09:44)
[2022-01-01] MEDS: ENOXAPARIN SOD 40 MG/0.4 ML SYRINGE SC SCH (09:44)
[2022-01-01] MEDS: DOCUSATE SOD 100 MG CAP PO PRN (09:45)
[2022-01-01 10:08] LABS: Basophils # (auto) 0.1 10 ^3/uL (0-0.2); Basophils % (auto) 1.6 % (0.0-2.0); Eosinophils # (auto) 0.1 10 ^3/uL (0-0.8); Eosinophils % (auto) 0.9 % (0.0-7.0); Hematocrit 25.2 % (41.0-53.0); Hemoglobin 8.4 g/dL (13.5-17.5); Lymphocytes # (auto) 2.8 10 ^3/uL (0.4-5.4); Mean Corpuscular Hgb Conc. 33.4 g/dL (32.0-36.0); Mean Corpuscular Volume 95.8 fL (80.0-100.0); Monocytes # (auto) 0.4 10 ^3/uL (0-1.3); Monocytes % (auto) 6.3 % (0.0-12.0); Neutrophils # (auto) 3.2 10 ^3/uL (1.6-8.6); Neutrophils % (auto) 49.2 % (37.0-80.0); Nucleated Red Blood Cells % 0.1 %; Red Blood Cells 2.64 10^6/uL (4.5-5.90); Red Cell Distribution Width 16.8 % (11.8-14.3); White Blood Cell 6.6 10^3/uL (4.4-10.8)
[2022-01-01 10:20] LABS: Albumin 2.3 g/dL (3.4-5.0); Calcium 8.2 mg/dL (8.5-10.1); Potassium 3.2 mmol/L (3.5-5.1)
[2022-01-01 10:22] LABS: BUN/Creatinine Ratio 19.8
[2022-01-01 10:24] LABS: Bilirubin, Total 0.3 mg/dL (0.2-1.0); Total Protein 5.7 g/dL (6.4-8.2)
[2022-01-01 10:30] LABS: Folate (Folic Acid) 8.37 ng/mL (5.38-24)
[2022-01-01] MEDS: ACETAMINOPHEN 325 MG TAB PO PRN (18:41)
[2022-01-01] MEDS: ATORVASTATIN 20 MG TAB PO SCH (21:02)
[2022-01-02] VITALS (7 sets, daily range): BP systolic 94–113; BP diastolic 47–61
[2022-01-02] MEDS: TEMAZEPAM 15 MG CAP PO PRN (01:05)
[2022-01-02] MEDS: HYDROcodone-ACET 5/325MG TAB PO PRN (01:05)
[2022-01-02] MEDS: PIPERACILLIN-TAZOB 3.375GM 100 ML IV SCH ×3 (05:51→21:39)
[2022-01-02] MEDS: ACCU-CHEK COMFORT CURVE STRIP VI SCH ×4 (06:02→21:40)
[2022-01-02] MEDS: GABAPENTIN 300 MG CAP PO SCH ×3 (06:10→21:40)
[2022-01-02] MEDS: InsuLIN REG 1unit/0.01ml Soln (100units/ml) SC SCH ×4 (06:10→21:46)
[2022-01-02] MEDS: POTASSIUM CHL 20 Meq TABLET PO SCH (09:36)
[2022-01-02] MEDS: ASPirin-EC 81 mg tab PO SCH (09:36)
[2022-01-02] MEDS: ENOXAPARIN SOD 40 MG/0.4 ML SYRINGE SC SCH (09:37)
[2022-01-02] MEDS: ENALAPRIL MALEATE 2.5 MG TAB PO SCH (09:37)
[2022-01-02] MEDS: ATORVASTATIN 20 MG TAB PO SCH (21:39)
[2022-01-03] VITALS (7 sets, daily range): BP systolic 106–157; BP diastolic 55–81
[2022-01-03] MEDS: GABAPENTIN 300 MG CAP PO SCH ×3 (06:24→21:21)
[2022-01-03] MEDS: ACCU-CHEK COMFORT CURVE STRIP VI SCH ×4 (06:24→21:22)
[2022-01-03] MEDS: InsuLIN REG 1unit/0.01ml Soln (100units/ml) SC SCH ×4 (06:26→21:22)
[2022-01-03] MEDS: PIPERACILLIN-TAZOB 3.375GM 100 ML IV SCH (06:37)
[2022-01-03] MEDS: ASPirin-EC 81 mg tab PO SCH (09:51)
[2022-01-03] MEDS: ENALAPRIL MALEATE 2.5 MG TAB PO SCH (09:51)
[2022-01-03] MEDS: POTASSIUM CHL 20 Meq TABLET PO SCH (09:51)
[2022-01-03] MEDS: ENOXAPARIN SOD 40 MG/0.4 ML SYRINGE SC SCH (09:52)
[2022-01-03] MEDS: cefTRIAXone 1GM/50ML D5W 50 ML IV SCH (13:11)
[2022-01-03] MEDS: HYDROcodone-ACET 5/325MG TAB PO PRN ×2 (15:53→21:23)
[2022-01-03] MEDS: ATORVASTATIN 20 MG TAB PO SCH (21:21)
[2022-01-04 05:00] VITALS: BP 132/51
[2022-01-04] MEDS: ACCU-CHEK COMFORT CURVE STRIP VI SCH ×4 (06:16→21:32)
[2022-01-04] MEDS: GABAPENTIN 300 MG CAP PO SCH ×3 (06:16→21:31)
[2022-01-04] MEDS: InsuLIN REG 1unit/0.01ml Soln (100units/ml) SC SCH ×4 (06:28→21:32)
[2022-01-04 08:43] VITALS: BP 95/53
[2022-01-04] MEDS: cefTRIAXone 1GM/50ML D5W 50 ML IV SCH (09:11)
[2022-01-04] MEDS: ASPirin-EC 81 mg tab PO SCH (09:11)
[2022-01-04] MEDS: ENOXAPARIN SOD 40 MG/0.4 ML SYRINGE SC SCH (09:12)
[2022-01-04] MEDS: POTASSIUM CHL 20 Meq TABLET PO SCH (09:12)
[2022-01-04] MEDS: ENALAPRIL MALEATE 2.5 MG TAB PO SCH (09:12)
[2022-01-04] MEDS: HYDROcodone-ACET 5/325MG TAB PO PRN (11:51)
[2022-01-04 13:00] VITALS: BP 158/65
[2022-01-04 16:49] VITALS: BP 151/38
[2022-01-04 20:00] VITALS: BP 129/51
[2022-01-04 21:21] VITALS: BP 129/51
[2022-01-04] MEDS: ATORVASTATIN 20 MG TAB PO SCH (21:31)
[2022-01-05] MEDS: ACETAMINOPHEN 325 MG TAB PO PRN (00:36)
[2022-01-05 04:38] VITALS: BP 134/51
[2022-01-05 05:18] LABS: Basophils # (auto) 0.1 10 ^3/uL (0-0.2); Basophils % (auto) 0.8 % (0.0-2.0); Eosinophils # (auto) 0.1 10 ^3/uL (0-0.8); Eosinophils % (auto) 1.1 % (0.0-7.0); Hematocrit 24.6 % (41.0-53.0); Hemoglobin 8.5 g/dL (13.5-17.5); Lymphocytes # (auto) 2.3 10 ^3/uL (0.4-5.4); Lymphocytes % (auto) 27.2 % (10.0-50.0); Mean Corpuscular Hemoglobin 33.5 pg (28.0-32.0); Mean Corpuscular Hgb Conc. 34.5 g/dL (32.0-36.0); Mean Corpuscular Volume 97.1 fL (80.0-100.0); Monocytes # (auto) 0.5 10 ^3/uL (0-1.3); Monocytes % (auto) 5.4 % (0.0-12.0); Neutrophils # (auto) 5.6 10 ^3/uL (1.6-8.6); Neutrophils % (auto) 65.5 % (37.0-80.0); Red Blood Cells 2.54 10^6/uL (4.5-5.90); White Blood Cell 8.5 10^3/uL (4.4-10.8)
[2022-01-05 05:49] LABS: Potassium 4.2 mmol/L (3.5-5.1)
[2022-01-05 05:57] LABS: Albumin 2.4 g/dL (3.4-5.0); BUN/Creatinine Ratio 25.5; Calcium 8.8 mg/dL (8.5-10.1)
[2022-01-05 06:02] LABS: Bilirubin, Total 0.3 mg/dL (0.2-1.0); Total Protein 5.9 g/dL (6.4-8.2)
[2022-01-05] MEDS: ACCU-CHEK COMFORT CURVE STRIP VI SCH ×4 (06:46→21:48)
[2022-01-05] MEDS: InsuLIN REG 1unit/0.01ml Soln (100units/ml) SC SCH ×4 (06:46→21:50)
[2022-01-05] MEDS: GABAPENTIN 300 MG CAP PO SCH ×3 (06:47→21:48)
[2022-01-05] MEDS: cefTRIAXone 1GM/50ML D5W 50 ML IV SCH (09:00)
[2022-01-05] MEDS: ASPirin-EC 81 mg tab PO SCH (10:00)
[2022-01-05] MEDS: ENALAPRIL MALEATE 2.5 MG TAB PO SCH (10:00)
[2022-01-05] MEDS: ENOXAPARIN SOD 40 MG/0.4 ML SYRINGE SC SCH (10:00)
[2022-01-05] MEDS: POTASSIUM CHL 20 Meq TABLET PO SCH (10:00)
[2022-01-05] MEDS: HYDROcodone-ACET 5/325MG TAB PO PRN (13:45)
[2022-01-05 14:08] VITALS: BP 129/54
[2022-01-05 16:00] VITALS: BP 150/68
[2022-01-05 20:00] VITALS: BP 105/62
[2022-01-05] MEDS: ATORVASTATIN 20 MG TAB PO SCH (21:48)
[2022-01-05 22:00] VITALS: BP 105/62
[2022-01-06] VITALS (7 sets, daily range): BP systolic 105–140; BP diastolic 57–68
[2022-01-06] MEDS: GABAPENTIN 300 MG CAP PO SCH ×3 (06:24→21:43)
[2022-01-06] MEDS: ACCU-CHEK COMFORT CURVE STRIP VI SCH ×4 (06:24→21:43)
[2022-01-06] MEDS: InsuLIN REG 1unit/0.01ml Soln (100units/ml) SC SCH ×4 (06:32→21:51)
[2022-01-06] MEDS: cefTRIAXone 1GM/50ML D5W 50 ML IV SCH (09:28)
[2022-01-06] MEDS: ASPirin-EC 81 mg tab PO SCH (09:29)
[2022-01-06] MEDS: POTASSIUM CHL 20 Meq TABLET PO SCH (09:29)
[2022-01-06] MEDS: ENALAPRIL MALEATE 2.5 MG TAB PO SCH (09:30)
[2022-01-06] MEDS: ENOXAPARIN SOD 40 MG/0.4 ML SYRINGE SC SCH (09:30)
[2022-01-06] MEDS: HYDROcodone-ACET 5/325MG TAB PO PRN (18:11)
[2022-01-06] MEDS: ATORVASTATIN 20 MG TAB PO SCH (21:42)
[2022-01-07 05:00] VITALS: BP 129/44
[2022-01-07] MEDS: GABAPENTIN 300 MG CAP PO SCH ×3 (06:30→20:47)
[2022-01-07] MEDS: ACCU-CHEK COMFORT CURVE STRIP VI SCH ×4 (06:30→20:48)
[2022-01-07] MEDS: InsuLIN REG 1unit/0.01ml Soln (100units/ml) SC SCH ×4 (06:31→20:48)
[2022-01-07 09:00] VITALS: BP 114/44
[2022-01-07 09:01] LABS: LDL Cholesterol 94 mg/dL (< 100)
[2022-01-07] MEDS: ENOXAPARIN SOD 40 MG/0.4 ML SYRINGE SC SCH (09:35)
[2022-01-07] MEDS: ASPirin-EC 81 mg tab PO SCH (09:35)
[2022-01-07] MEDS: POTASSIUM CHL 20 Meq TABLET PO SCH (09:36)
[2022-01-07] MEDS: ENALAPRIL MALEATE 2.5 MG TAB PO SCH (09:36)
[2022-01-07] MEDS: cefTRIAXone 1GM/50ML D5W 50 ML IV SCH (09:38)
[2022-01-07] MEDS: HYDROcodone-ACET 5/325MG TAB PO PRN ×2 (09:54→18:41)
[2022-01-07 13:00] VITALS: BP 108/65
[2022-01-07 17:00] VITALS: BP 111/49
[2022-01-07] MEDS: ATORVASTATIN 20 MG TAB PO SCH (20:47)
[2022-01-07 22:00] VITALS: BP 126/50
[2022-01-07] MEDS: ACETAMINOPHEN 325 MG TAB PO PRN (23:11)
[2022-01-07] MEDS: TEMAZEPAM 15 MG CAP PO PRN (23:11)
[2022-01-08] MEDS: HYDROcodone-ACET 5/325MG TAB PO PRN ×4 (02:46→18:32)
[2022-01-08 05:00] VITALS: BP 145/68
[2022-01-08] MEDS: GABAPENTIN 300 MG CAP PO SCH ×2 (05:27→18:32)
[2022-01-08] MEDS: ACCU-CHEK COMFORT CURVE STRIP VI SCH ×3 (05:28→17:00)
[2022-01-08] MEDS: InsuLIN REG 1unit/0.01ml Soln (100units/ml) SC SCH ×3 (05:43→18:33)
[2022-01-08 08:00] VITALS: BP 113/52
[2022-01-08] MEDS: cefTRIAXone 1GM/50ML D5W 50 ML IV SCH (10:52)
[2022-01-08] MEDS: POTASSIUM CHL 20 Meq TABLET PO SCH (10:53)
[2022-01-08] MEDS: ASPirin-EC 81 mg tab PO SCH (10:53)
[2022-01-08] MEDS: ENOXAPARIN SOD 40 MG/0.4 ML SYRINGE SC SCH (10:54)
[2022-01-08] MEDS: ENALAPRIL MALEATE 2.5 MG TAB PO SCH (10:54)
[2022-01-08 12:00] VITALS: BP 127/53
[2022-01-08 16:00] VITALS: BP 109/50
[2022-01-08 18:01] VITALS: BP 109/50
== END 2022-01-08 19:55 | DRG 689 ==
LOC: ER 17:42 → EDBD 17:42 → TELE 12-30 12:56 → TELE-WESTW 12-30 17:15
PROVIDERS: ADMIT Nurse Practitioner; ATTEND Nurse Practitioner
DX: N39.0 Urinary tract infection, site not specified (principal); G93.41 Metabolic encephalopathy; I16.1 Hypertensive emergency; E44.0 Moderate protein-calorie malnutrition; E11.65 Type 2 diabetes mellitus with hyperglycemia; Z20.822 Contact with and (suspected) exposure to COVID-19; E11.40 Type 2 diabetes mellitus with diabetic neuropathy, unspecified; E78.5 Hyperlipidemia, unspecified; M19.90 Unspecified osteoarthritis, unspecified site; F17.200 Nicotine dependence, unspecified, uncomplicated; Z79.899 Other long term (current) drug therapy; Z80.0 Family history of malignant neoplasm of digestive organs; Z80.1 Family history of malignant neoplasm of trachea, bronchus and lung; Z80.3 Family history of malignant neoplasm of breast; Z80.42 Family history of malignant neoplasm of prostate; Z80.8 Family history of malignant neoplasm of other organs or systems; Z81.8 Family history of other mental and behavioral disorders; Z82.0 Family history of epilepsy and other diseases of the nervous system; Z82.3 Family history of stroke; Z82.49 Family history of ischemic heart disease and other diseases of the circulatory system; Z82.5 Family history of asthma and other chronic lower respiratory diseases; Z82.62 Family history of osteoporosis; Z83.3 Family history of diabetes mellitus; Z86.73 Personal history of transient ischemic attack (TIA), and cerebral infarction without residual deficits; Z68.20 Body mass index [BMI] 20.0-20.9, adult; Z79.84 Long term (current) use of oral hypoglycemic drugs
CPT/HCPCS: 36415; 70450; 70551; 71045; 80053; 80061; 81001; 82607; 82746; 82962; 83036; 83880; 84443; 84484; 85025; 87081; 87426; 93005; 93306; 93886; 95819; 96372; 97116; 97530; G0378; J0696; J1815; J2543

== ENCOUNTER 2023-09-15 15:41 | Inpatient (IN) | payer OTHER, MEDICAID ==
[~2023-09-15] VITALS: Ht 170.2 cm; Wt 56.6 kg
[~2023-09-15 15:41] MED LIST changes: +AMIT25TA20 PO; +ATOR20TA50 PO; +CHOL20004 PO; +ENAL1TAB42; -ENAL2.5T7; +GABA-1250 PO; -GABA300C10 PO; -GLIP10TA9; +GLIP10TA9 PO; -INSUPOW; +METF-929 PO; +NITR0.4S29 SL; +OMEP20TA PO
[2023-09-15 16:25] LABS: Basophils # (auto) 0 10 ^3/uL (0-0.2); Basophils % (auto) 0.5 % (0.0-2.0); Eosinophils # (auto) 0.1 10 ^3/uL (0-0.8); Eosinophils % (auto) 1.1 % (0.0-7.0); Hematocrit 32.8 % (41.0-53.0); Hemoglobin 10.6 g/dL (13.5-17.5); Lymphocytes # (auto) 1.7 10 ^3/uL (0.4-5.4); Lymphocytes % (auto) 18.1 % (10.0-50.0); Mean Corpuscular Hemoglobin 31.4 pg (28.0-32.0); Mean Corpuscular Hgb Conc. 32.3 g/dL (32.0-36.0); Mean Corpuscular Volume 97.2 fL (80.0-100.0); Monocytes # (auto) 0.6 10 ^3/uL (0-1.3); Monocytes % (auto) 6.5 % (0.0-12.0); Neutrophils # (auto) 7.1 10 ^3/uL (1.6-8.6); Neutrophils % (auto) 73.8 % (37.0-80.0); Red Blood Cells 3.37 10^6/uL (4.5-5.90); Red Cell Distribution Width 15.3 % (11.8-14.3); White Blood Cell 9.6 10^3/uL (4.4-10.8)
[2023-09-15 16:36] LABS: INR 1.05 (0.9-1.15)
[2023-09-15 17:06] LABS: Acetaminophen < 2.0 UG/ML (10.0-20.0); Alanine Aminotransferase 27 U/L (7-40); Alkaline Phosphatase 115 U/L (46-116); Anion Gap 9 (5-15); Aspartate Aminotransferase 47 U/L (13-40); BUN/Creatinine Ratio 30.6 (10.0-20.0); Blood Alcohol < 3.0 mg/dL (<10); Blood Urea Nitrogen 41 mg/dL (9-23); Carbon Dioxide 24 mmol/L (20-30); Chloride 100 mmol/L (98-107); Glucose 199 mg/dL (74-106); Lipase 26 U/L (12-53); Magnesium 2.2 mg/dL (1.6-2.6); Potassium 3.8 mmol/L (3.5-5.1); Sodium 133 mmol/L (136-145)
[2023-09-15 17:07] LABS: Bilirubin, Total 0.8 mg/dL (0.2-1.0); Total Protein 6.4 g/dL (5.7-8.2)
[2023-09-15 17:32] LABS: Salicylate < 3.0 mg/dL (2.8-20.0)
[2023-09-15] MEDS ORDERED: SODIUM CHLORIDE 0.9% 1,000 ML IV ONE (17:45)
[2023-09-15] MEDS ORDERED: ASPirin-EC 325mg tab PO ONE (17:45)
[2023-09-15] MEDS ORDERED: ROSU10TA64 PO (18:21)
[2023-09-15] MEDS ORDERED: FIN5T PO (18:21)
[2023-09-15] MEDS ORDERED: IPRATROPIUM BROM 0.5 MG/2.5ML INH SOL NEB PRN (18:30)
[2023-09-15] MEDS ORDERED: ALBUTEROL MEDNEB 2.5 mg/3ml NEB NEB PRN (18:30)
[2023-09-15] MEDS ORDERED: hydrALAZINE HCL 20 MG/ML VL IV PRN (18:30)
[2023-09-15] MEDS ORDERED: DEXTROSE (50%) 50ML SYRG IV PRN (18:30)
[2023-09-15] MEDS ORDERED: DOCUSATE SOD 100 MG CAP PO PRN (18:45)
[2023-09-15] MEDS ORDERED: NITROGLYCERIN 0.4 MG SL TAB SL PRN (18:45)
[2023-09-15] MEDS ORDERED: ONDANSETRON HCL 4 MG/2 ML VIAL IV PRN (18:45)
[2023-09-15] MEDS ORDERED: MORPHINE SULFATE INJ 2 MG/ml SYRG IV PRN (18:45)
[2023-09-15 19:45] VITALS: BP 106/65; PULSE 88; RESP 18; TEMP 98; O2SAT 99
[2023-09-15] MEDS: SODIUM CHLORIDE 0.9% 1,000 ML IV SCH (20:33)
[2023-09-15] MEDS ORDERED: LORazepam 2MG/ML-1ML VIAL IV PRN (23:15)
[2023-09-15 23:30] VITALS: PULSE 92; RESP 18; O2SAT 96
[2023-09-15] MEDS: InsuLIN REG 1unit/0.01ml Soln (100units/ml) SC SCH (23:52)
[2023-09-15] MEDS: ACCU-CHEK COMFORT CURVE STRIP VI SCH (23:52)
[2023-09-16 00:24] LABS: Amphetamine Screen, Urine Neg (NEGATIVE); Barbiturate Scree,Urine Neg (NEGATIVE); Benzodiazephine Screen, Urine Neg (NEGATIVE); Cocaine Screen, Urine Neg (NEGATIVE); Opiate Scree,Urine Pos (NEGATIVE)
[2023-09-16 00:25] LABS: Cannabinoid Screen, Urine Neg (NEGATIVE); Phencyclidine Screen, Urine Neg (NEGATIVE)
[2023-09-16 00:33] LABS: Urine Bacteria NONE SEEN /hpf (None Seen); Urine Blood Negative /uL (Negative); Urine Clarity Clear (Clear); Urine Color Colorless (Yellow); Urine Protein, UAD TRACE (Negative); Urine Specific Gravity 1.008 (1.001-1.035); Urine Urobilinogen Normal (Negative); Urine WBC 1 /hpf (0 - 3)
[2023-09-16] MEDS: SODIUM CHLORIDE 0.9% 1,000 ML IV SCH ×3 (04:48→14:06)
[2023-09-16] MEDS: InsuLIN REG 1unit/0.01ml Soln (100units/ml) SC SCH ×4 (06:13→22:00)
[2023-09-16] MEDS: ACCU-CHEK COMFORT CURVE STRIP VI SCH ×4 (06:13→22:57)
[2023-09-16 06:23] LABS: Basophils # (auto) 0 10 ^3/uL (0-0.2); Basophils % (auto) 0.4 % (0.0-2.0); Eosinophils # (auto) 0.1 10 ^3/uL (0-0.8); Eosinophils % (auto) 0.8 % (0.0-7.0); Hematocrit 30.9 % (41.0-53.0); Hemoglobin 10.4 g/dL (13.5-17.5); Lymphocytes % (auto) 11.9 % (10.0-50.0); Mean Corpuscular Hgb Conc. 33.7 g/dL (32.0-36.0); Mean Corpuscular Volume 94.9 fL (80.0-100.0); Monocytes # (auto) 0.6 10 ^3/uL (0-1.3); Monocytes % (auto) 7.2 % (0.0-12.0); Neutrophils # (auto) 6.5 10 ^3/uL (1.6-8.6); Neutrophils % (auto) 79.7 % (37.0-80.0); Nucleated Red Blood Cells % 0.1 %; Red Blood Cells 3.26 10^6/uL (4.5-5.90); Red Cell Distribution Width 15.3 % (11.8-14.3); White Blood Cell 8.2 10^3/uL (4.4-10.8)
[2023-09-16 06:47] LABS: Alanine Aminotransferase 32 U/L (7-40); Alkaline Phosphatase 103 U/L (46-116); Calcium 9.2 mg/dL (8.5-10.1); Carbon Dioxide 20 mmol/L (20-30); Chloride 107 mmol/L (98-107); Glucose 184 mg/dL (74-106); LDL Cholesterol 29 mg/dL (< 100); Triglycerides 92 mg/dL (< 150)
[2023-09-16 06:48] LABS: Anion Gap 11 (5-15); Aspartate Aminotransferase 48 U/L (13-40); BUN/Creatinine Ratio 22.4 (10.0-20.0); Bilirubin, Total 0.7 mg/dL (0.2-1.0); Cholesterol 97 mg/dL (< 200); HDL Cholesterol 46 mg/dL (40-59); Sodium 138 mmol/L (136-145); Total Protein 6.5 g/dL (5.7-8.2)
[2023-09-16 06:51] LABS: Blood Urea Nitrogen 24 mg/dL (9-23)
[2023-09-16 08:26] VITALS: PULSE 101; RESP 20; O2SAT 97
[2023-09-16] MEDS: ENOXAPARIN SOD 30 MG/0.3 ML SYRINGE SC SCH (09:10)
[2023-09-16] MEDS: FINASTERIDE 5 MG TAB PO SCH (09:10)
[2023-09-16] MEDS: ASPirin-EC 81 mg tab PO SCH (09:10)
[2023-09-16 10:58] LABS: Magnesium 2.2 mg/dL (1.6-2.6)
[2023-09-16 11:01] LABS: Phosphorus 3.1 mg/dL (2.4-5.1)
[2023-09-16 12:10] VITALS: O2SAT 97
[2023-09-16] MEDS: GABAPENTIN 300 MG CAP PO SCH ×2 (13:37→22:57)
[2023-09-16] MEDS: LISINOPRIL 10 MG TAB PO SCH (13:38)
[2023-09-16 20:00] VITALS: PULSE 98; RESP 18; O2SAT 96
[2023-09-16 22:00] VITALS: BP 128/55; PULSE 86; RESP 16; TEMP 98.4; O2SAT 97
[2023-09-16 22:36] VITALS: BP 128/55; PULSE 86; RESP 16; TEMP 98.4; O2SAT 97
[2023-09-16] MEDS: ATORVASTATIN 20 MG TAB PO SCH (22:54)
[2023-09-17] VITALS (9 sets, daily range): BP systolic 140–157; BP diastolic 64–83; PULSE 14–103; RESP 14–97; TEMP 99.1–99.8; O2SAT 95–97
[2023-09-17] MEDS: SODIUM CHLORIDE 0.9% 1,000 ML IV SCH ×2 (02:50→04:30)
[2023-09-17 06:12] LABS: Basophils # (auto) 0 10 ^3/uL (0-0.2); Basophils % (auto) 0.6 % (0.0-2.0); Eosinophils # (auto) 0 10 ^3/uL (0-0.8); Eosinophils % (auto) 0.7 % (0.0-7.0); Hematocrit 28.4 % (41.0-53.0); Hemoglobin 9.7 g/dL (13.5-17.5); Lymphocytes # (auto) 1.2 10 ^3/uL (0.4-5.4); Lymphocytes % (auto) 24.2 % (10.0-50.0); Mean Corpuscular Volume 94.1 fL (80.0-100.0); Monocytes # (auto) 0.5 10 ^3/uL (0-1.3); Monocytes % (auto) 9.2 % (0.0-12.0); Neutrophils # (auto) 3.3 10 ^3/uL (1.6-8.6); Neutrophils % (auto) 65.3 % (37.0-80.0); Red Blood Cells 3.02 10^6/uL (4.5-5.90); Red Cell Distribution Width 15.3 % (11.8-14.3); White Blood Cell 5.1 10^3/uL (4.4-10.8)
[2023-09-17] MEDS: GABAPENTIN 300 MG CAP PO SCH (06:31)
[2023-09-17] MEDS: InsuLIN REG 1unit/0.01ml Soln (100units/ml) SC SCH ×4 (06:32→22:21)
[2023-09-17] MEDS: ACCU-CHEK COMFORT CURVE STRIP VI SCH ×3 (06:32→18:03)
[2023-09-17 06:47] LABS: Alanine Aminotransferase 22 U/L (7-40); Albumin 3.5 g/dL (3.2-4.8); Alkaline Phosphatase 88 U/L (46-116); Anion Gap 8 (5-15); Aspartate Aminotransferase 26 U/L (13-40); BUN/Creatinine Ratio 18.1 (10.0-20.0); Bilirubin, Total 0.7 mg/dL (0.2-1.0); Blood Urea Nitrogen 19 mg/dL (9-23); Calcium 8.6 mg/dL (8.7-10.4); Carbon Dioxide 22 mmol/L (20-30); Chloride 110 mmol/L (98-107); Glucose 238 mg/dL (74-106); Magnesium 1.9 mg/dL (1.6-2.6); Potassium 3.1 mmol/L (3.5-5.1); Sodium 140 mmol/L (136-145); Total Protein 5.9 g/dL (5.7-8.2)
[2023-09-17 07:25] LABS: Creatinine, Urine 40.48 mg/dL (30.0-125.0)
[2023-09-17] MEDS ORDERED: POTASSIUM CHL 20 Meq TABLET PO ONE (07:30)
[2023-09-17] MEDS: ASPirin-EC 81 mg tab PO SCH (09:36)
[2023-09-17] MEDS: FINASTERIDE 5 MG TAB PO SCH (09:37)
[2023-09-17] MEDS: LISINOPRIL 10 MG TAB PO SCH (09:37)
[2023-09-17] MEDS: ENOXAPARIN SOD 30 MG/0.3 ML SYRINGE SC SCH (09:38)
[2023-09-17] MEDS: GABAPENTIN 100 MG CAP PO SCH ×2 (13:59→22:08)
[2023-09-17] MEDS ORDERED: FERR325T24 PO (16:21)
[2023-09-17] MEDS ORDERED: NAP500T PO (16:21)
[2023-09-17] MEDS ORDERED: OXY5T PO (16:21)
[2023-09-17] MEDS ORDERED: TRIA0.5C TOP (16:21)
[2023-09-17] MEDS ORDERED: SILD50TA42 PO (16:21)
[2023-09-17] MEDS ORDERED: MECL25CH85 PO (16:21)
[2023-09-17] MEDS ORDERED: CEFP200T15 PO (16:21)
[2023-09-17] MEDS ORDERED: DOCU-94 PO (16:21)
[2023-09-17] MEDS ORDERED: ERGO1CAP23 PO (16:21)
[2023-09-17] MEDS ORDERED: GABA-1250 PO (16:21)
[2023-09-17] MEDS ORDERED: IBUP-1456 PO (16:21)
[2023-09-17] MEDS ORDERED: MUPI2CRE17 EX (16:21)
[2023-09-17] MEDS ORDERED: SITA50TA PO (16:21)
[2023-09-17] MEDS ORDERED: MEGE20TA4 PO (16:21)
[2023-09-17] MEDS: ATORVASTATIN 20 MG TAB PO SCH (22:08)
[2023-09-18 05:00] VITALS: BP 123/59; PULSE 111; RESP 16; TEMP 98.1; O2SAT 98
[2023-09-18] MEDS: ACCU-CHEK COMFORT CURVE STRIP VI SCH ×5 (05:03→22:09)
[2023-09-18] MEDS: InsuLIN REG 1unit/0.01ml Soln (100units/ml) SC SCH ×4 (06:31→22:14)
[2023-09-18] MEDS: GABAPENTIN 100 MG CAP PO SCH ×3 (06:33→22:09)
[2023-09-18 07:28] LABS: Anion Gap 10 (5-15); Carbon Dioxide 19 mmol/L (20-30); Chloride 112 mmol/L (98-107); Potassium 3.5 mmol/L (3.5-5.1); Sodium 141 mmol/L (136-145)
[2023-09-18 07:30] LABS: Calcium 8.4 mg/dL (8.7-10.4)
[2023-09-18 07:34] LABS: Glucose 182 mg/dL (74-106)
[2023-09-18 07:35] LABS: BUN/Creatinine Ratio 17.5 (10.0-20.0); Blood Urea Nitrogen 17 mg/dL (9-23)
[2023-09-18 08:00] VITALS: BP 115/53; PULSE 111; PULSE 55; PULSE 94; RESP 17; TEMP 99.5; O2SAT 93
[2023-09-18 09:00] VITALS: BP 115/53; PULSE 55; RESP 17; TEMP 99.5; O2SAT 93
[2023-09-18] MEDS: FINASTERIDE 5 MG TAB PO SCH (09:27)
[2023-09-18] MEDS: ASPirin-EC 81 mg tab PO SCH (09:27)
[2023-09-18] MEDS: ENOXAPARIN SOD 30 MG/0.3 ML SYRINGE SC SCH (09:28)
[2023-09-18] MEDS: LISINOPRIL 10 MG TAB PO SCH (09:28)
[2023-09-18 13:00] VITALS: BP 111/60; PULSE 94; RESP 17; TEMP 98.9; O2SAT 95
[2023-09-18] MEDS: ACETAMINOPHEN 325 MG TAB PO PRN ×2 (16:15→22:09)
[2023-09-18 17:00] VITALS: BP 129/68; PULSE 94; RESP 18; TEMP 98.8; O2SAT 98
[2023-09-18 20:00] VITALS: BP 115/53; PULSE 55; PULSE 88; PULSE 96; RESP 17; RESP 18; TEMP 99.5; O2SAT 94
[2023-09-18] MEDS: ATORVASTATIN 20 MG TAB PO SCH (22:09)
[2023-09-19 05:00] VITALS: BP 148/79; PULSE 75; RESP 18; TEMP 98.3; O2SAT 95
[2023-09-19] MEDS: GABAPENTIN 100 MG CAP PO SCH ×2 (05:54→15:12)
[2023-09-19] MEDS: ACETAMINOPHEN 325 MG TAB PO PRN (05:58)
[2023-09-19] MEDS: ACCU-CHEK COMFORT CURVE STRIP VI SCH ×2 (06:00→11:01)
[2023-09-19] MEDS: InsuLIN REG 1unit/0.01ml Soln (100units/ml) SC SCH ×2 (06:01→11:03)
[2023-09-19 08:00] VITALS: PULSE 88
[2023-09-19 08:27] VITALS: PULSE 94; RESP 17; O2SAT 93
[2023-09-19 09:00] VITALS: BP 157/81; PULSE 81; RESP 18; TEMP 97.8; O2SAT 94
[2023-09-19] MEDS: ASPirin-EC 81 mg tab PO SCH (10:21)
[2023-09-19] MEDS: FINASTERIDE 5 MG TAB PO SCH (10:21)
[2023-09-19] MEDS: ENOXAPARIN SOD 30 MG/0.3 ML SYRINGE SC SCH (10:21)
[2023-09-19] MEDS: LISINOPRIL 10 MG TAB PO SCH (10:22)
[2023-09-19 13:00] VITALS: BP 144/87; PULSE 84; RESP 18; TEMP 97.4; O2SAT 95
[2023-09-19 14:03] VITALS: BP 157/81; TEMP 36.8
== END 2023-09-19 16:00 | DRG 280 ==
LOC: EDBD 15:41 → ER 15:41 → TELE 19:00 → TELE-WESTW 09-16 22:00
PROVIDERS: ADMIT Nurse Practitioner Family; ATTEND Internal Medicine Geriatric Medicine
DX: I21.4 Non-ST elevation (NSTEMI) myocardial infarction (principal); G93.41 Metabolic encephalopathy; N17.0 Acute kidney failure with tubular necrosis; N18.6 End stage renal disease; F11.20 Opioid dependence, uncomplicated; I12.0 Hypertensive chronic kidney disease with stage 5 chronic kidney disease or end stage renal disease; R56.9 Unspecified convulsions; E86.0 Dehydration; E11.42 Type 2 diabetes mellitus with diabetic polyneuropathy; E78.5 Hyperlipidemia, unspecified; E11.22 Type 2 diabetes mellitus with diabetic chronic kidney disease; G89.4 Chronic pain syndrome; M19.90 Unspecified osteoarthritis, unspecified site; D63.1 Anemia in chronic kidney disease; Z86.73 Personal history of transient ischemic attack (TIA), and cerebral infarction without residual deficits; Z83.3 Family history of diabetes mellitus; Z82.62 Family history of osteoporosis; Z82.5 Family history of asthma and other chronic lower respiratory diseases; Z82.49 Family history of ischemic heart disease and other diseases of the circulatory system; Z82.3 Family history of stroke; Z82.0 Family history of epilepsy and other diseases of the nervous system; Z81.8 Family history of other mental and behavioral disorders; Z80.8 Family history of malignant neoplasm of other organs or systems; Z80.42 Family history of malignant neoplasm of prostate; Z80.3 Family history of malignant neoplasm of breast; Z80.1 Family history of malignant neoplasm of trachea, bronchus and lung; Z80.0 Family history of malignant neoplasm of digestive organs; Y92.89 Other specified places as the place of occurrence of the external cause; T40.2X5A Adverse effect of other opioids, initial encounter
CPT/HCPCS: 36415; 70450; 70551; 71045; 80048; 80053; 80061; 80307; 80320; 80329; 81001; 82140; 82570; 82962; 83036; 83690; 83735; 83880; 84100; 84300; 84443; 84484; 85025; 85610; 93005; 93306; 93886; 95819; 96360; 97110; 97116; 97163; 97530; G0378; J1815

== ENCOUNTER 2023-10-11 00:32 | Inpatient (IN) | payer OTHER, MEDICAID ==
[2023-10-11] VITALS (7 sets, daily range): BP systolic 122–190; BP diastolic 48–89; PULSE 66–79; RESP 14–25; TEMP 97.5–98.1; O2SAT 95–100
[~2023-10-11] VITALS: Ht 175.3 cm; Wt 63.6 kg
[~2023-10-11 00:32] MED LIST changes: -AMIT25TA20 PO; -ATOR20TA50 PO; +CEFP200T15 PO; -CHOL20004 PO; +DOCU-94 PO; -ENAL1TAB42; +ERGO1CAP23 PO; +FERR325T24 PO; +FIN5T PO; +IBUP-1456 PO; +MECL25CH85 PO; +MEGE20TA4 PO; +MUPI2CRE17 EX; +NAP500T PO; -OMEP20TA PO; +OXY5T PO; -PERCOT PO; +ROSU10TA64 PO; +SILD50TA42 PO; +SITA50TA PO; +TRIA0.5C TOP
[2023-10-11 02:00] LABS: Basophils # (auto) 0.1 10 ^3/uL (0-0.2); Eosinophils # (auto) 0.1 10 ^3/uL (0-0.8); Eosinophils % (auto) 1.4 % (0.0-7.0); Hematocrit 32.3 % (41.0-53.0); Hemoglobin 10.4 g/dL (13.5-17.5); Lymphocytes # (auto) 2.3 10 ^3/uL (0.4-5.4); Lymphocytes % (auto) 31.9 % (10.0-50.0); Mean Corpuscular Hemoglobin 31.3 pg (28.0-32.0); Mean Corpuscular Hgb Conc. 32.1 g/dL (32.0-36.0); Mean Corpuscular Volume 97.3 fL (80.0-100.0); Monocytes # (auto) 0.7 10 ^3/uL (0-1.3); Neutrophils # (auto) 4.1 10 ^3/uL (1.6-8.6); Neutrophils % (auto) 55.7 % (37.0-80.0); Red Blood Cells 3.32 10^6/uL (4.5-5.90); White Blood Cell 7.3 10^3/uL (4.4-10.8)
[2023-10-11 02:20] LABS: Alanine Aminotransferase 35 U/L (7-40); Albumin 4.5 g/dL (3.2-4.8); Alkaline Phosphatase 106 U/L (46-116); Anion Gap 10 (5-15); Aspartate Aminotransferase 32 U/L (13-40); Blood Urea Nitrogen 15 mg/dL (9-23); Calcium 9.7 mg/dL (8.7-10.4); Carbon Dioxide 20 mmol/L (20-30); Chloride 107 mmol/L (98-107); Glucose 192 mg/dL (74-106); Lipase 29 U/L (12-53); Potassium 4.1 mmol/L (3.5-5.1); Sodium 137 mmol/L (136-145)
[2023-10-11 02:21] LABS: Bilirubin, Total 0.7 mg/dL (0.2-1.0); Total Protein 7.6 g/dL (5.7-8.2)
[2023-10-11] MEDS ORDERED: IOHEXOL 300 MG/ML 100ML BOTTLE IJ ONE (02:26)
[2023-10-11 04:18] LABS: Urine Bacteria NONE SEEN /hpf (None Seen); Urine Blood Negative /uL (Negative); Urine Clarity HAZY (Clear); Urine Color Colorless (Yellow); Urine Protein, UAD TRACE (Negative); Urine Urobilinogen Normal (Negative); Urine WBC 579 /hpf (0 - 3); Urine WBC Clumps PRESENT /hpf (None Seen); Urine pH 7.5 (5.0-8.0)
[2023-10-11] MEDS ORDERED: ONDANSETRON HCL 4 MG/2 ML VIAL IV ONE (04:30)
[2023-10-11] MEDS ORDERED: MORPHINE SULFATE 4 MG/ML SYR/VIAL IV ONE (04:30)
[2023-10-11] MEDS ORDERED: LABETALOL HCL 5 MG/ML 4ML SYRINGE IV ONE (05:15)
[2023-10-11] MEDS ORDERED: SODIUM CHLORIDE 0.9% 1,000 ML IV ONE (05:15)
[2023-10-11] MEDS ORDERED: ACETAMINOPHEN 325 MG TAB PO PRN (05:15)
[2023-10-11] MEDS: cefTRIAXone 1GM/50ML D5W 50 ML IV SCH (06:20)
[2023-10-11] MEDS ORDERED: TEMAZEPAM 15 MG CAP PO PRN (06:30)
[2023-10-11] MEDS ORDERED: ONDANSETRON HCL 4 MG/2 ML VIAL IV PRN (06:30)
[2023-10-11] MEDS ORDERED: DOCUSATE SOD 100 MG CAP PO PRN (06:30)
[2023-10-11] MEDS ORDERED: MORPHINE SULFATE INJ 2 MG/ml SYRG IV PRN ×2 (06:30)
[2023-10-11] MEDS ORDERED: NITROGLYCERIN 0.4 MG SL TAB SL PRN (06:30)
[2023-10-11] MEDS ORDERED: HYDROcodone-ACET 5/325MG TAB PO PRN (06:30)
[2023-10-11] MEDS: levoFLOXacin 500MG 100 ML IV SCH (10:13)
[2023-10-11] MEDS: MULTIPLE VITAMIN TAB PO SCH (10:44)
[2023-10-11] MEDS: ASCORBIC ACID 500 MG TAB PO SCH ×2 (10:44→21:25)
[2023-10-11] MEDS: ZINC SULFATE 220mg CAP or TAB PO SCH (10:45)
[2023-10-11] MEDS ORDERED: DEXTROSE (50%) 50ML SYRG IV PRN (12:30)
[2023-10-11] MEDS: ACCU-CHEK COMFORT CURVE STRIP VI SCH ×2 (16:35→21:31)
[2023-10-11] MEDS: glipiZIDE 5 MG TAB PO SCH (16:44)
[2023-10-11] MEDS: InsuLIN REG 1unit/0.01ml Soln (100units/ml) SC SCH ×2 (16:52→22:00)
[2023-10-11] MEDS: hydrALAZINE HCL 20 MG/ML VL IV PRN ×2 (17:17→21:25)
[2023-10-12] VITALS (7 sets, daily range): BP systolic 108–154; BP diastolic 46–103; PULSE 84–95; RESP 17–22; TEMP 97.7–99.3; O2SAT 95–100
[2023-10-12] MEDS: cefTRIAXone 1GM/50ML D5W 50 ML IV SCH (05:45)
[2023-10-12] MEDS: ACCU-CHEK COMFORT CURVE STRIP VI SCH ×4 (05:57→20:51)
[2023-10-12] MEDS: InsuLIN REG 1unit/0.01ml Soln (100units/ml) SC SCH ×4 (06:04→21:06)
[2023-10-12 06:07] LABS: Basophils # (auto) 0.1 10 ^3/uL (0-0.2); Basophils % (auto) 0.9 % (0.0-2.0); Eosinophils # (auto) 0.1 10 ^3/uL (0-0.8); Eosinophils % (auto) 1.4 % (0.0-7.0); Hematocrit 27.1 % (41.0-53.0); Hemoglobin 9.2 g/dL (13.5-17.5); Lymphocytes % (auto) 30.2 % (10.0-50.0); Mean Corpuscular Hemoglobin 32.4 pg (28.0-32.0); Mean Corpuscular Hgb Conc. 33.9 g/dL (32.0-36.0); Mean Corpuscular Volume 95.5 fL (80.0-100.0); Monocytes # (auto) 0.6 10 ^3/uL (0-1.3); Neutrophils # (auto) 3.7 10 ^3/uL (1.6-8.6); Neutrophils % (auto) 57.5 % (37.0-80.0); Red Blood Cells 2.84 10^6/uL (4.5-5.90); Red Cell Distribution Width 16.8 % (11.8-14.3); White Blood Cell 6.5 10^3/uL (4.4-10.8)
[2023-10-12 06:28] LABS: Alanine Aminotransferase 33 U/L (7-40); Alkaline Phosphatase 83 U/L (46-116); Anion Gap 11 (5-15); BUN/Creatinine Ratio 27.4 (10.0-20.0); Calcium 9.1 mg/dL (8.5-10.1); Carbon Dioxide 19 mmol/L (20-30); Chloride 108 mmol/L (98-107); Glucose 230 mg/dL (74-106); Potassium 4.6 mmol/L (3.5-5.1); Sodium 138 mmol/L (136-145)
[2023-10-12 06:29] LABS: Albumin 3.6 g/dL (3.2-4.8); Aspartate Aminotransferase 25 U/L (13-40); Bilirubin, Total 0.5 mg/dL (0.2-1.0); Blood Urea Nitrogen 26 mg/dL (9-23); Total Protein 5.9 g/dL (5.7-8.2)
[2023-10-12] MEDS: levoFLOXacin 500MG 100 ML IV SCH (08:26)
[2023-10-12] MEDS: MULTIPLE VITAMIN TAB PO SCH (08:26)
[2023-10-12] MEDS: ZINC SULFATE 220mg CAP or TAB PO SCH (08:26)
[2023-10-12] MEDS: ASCORBIC ACID 500 MG TAB PO SCH ×2 (08:26→20:50)
[2023-10-12] MEDS: glipiZIDE 5 MG TAB PO SCH ×2 (08:31→16:45)
[2023-10-13] VITALS (8 sets, daily range): BP systolic 105–181; BP diastolic 51–96; PULSE 78–105; RESP 17–19; TEMP 98–98.9; O2SAT 97–99
[2023-10-13] MEDS: cefTRIAXone 1GM/50ML D5W 50 ML IV SCH (05:28)
[2023-10-13] MEDS: ACCU-CHEK COMFORT CURVE STRIP VI SCH ×4 (05:40→21:45)
[2023-10-13] MEDS: glipiZIDE 5 MG TAB PO SCH ×2 (05:40→17:18)
[2023-10-13] MEDS: InsuLIN REG 1unit/0.01ml Soln (100units/ml) SC SCH ×4 (05:41→20:20)
[2023-10-13] MEDS: ASCORBIC ACID 500 MG TAB PO SCH ×2 (08:24→20:22)
[2023-10-13] MEDS: MULTIPLE VITAMIN TAB PO SCH (08:24)
[2023-10-13] MEDS: levoFLOXacin 500MG 100 ML IV SCH (08:24)
[2023-10-13] MEDS: ZINC SULFATE 220mg CAP or TAB PO SCH (08:24)
[2023-10-13] MEDS: hydrALAZINE HCL 20 MG/ML VL IV PRN ×2 (12:11→21:45)
[2023-10-13] MEDS: ACETAMINOPHEN 325 MG TAB PO PRN (13:57)
[2023-10-14] VITALS (7 sets, daily range): BP systolic 93–181; BP diastolic 59–85; PULSE 72–111; RESP 17–20; TEMP 36.8; O2SAT 98–100
[2023-10-14] MEDS: InsuLIN REG 1unit/0.01ml Soln (100units/ml) SC SCH ×4 (05:43→22:09)
[2023-10-14] MEDS: cefTRIAXone 1GM/50ML D5W 50 ML IV SCH (05:46)
[2023-10-14] MEDS: ACCU-CHEK COMFORT CURVE STRIP VI SCH ×4 (05:47→22:12)
[2023-10-14] MEDS: glipiZIDE 5 MG TAB PO SCH ×2 (05:47→17:34)
[2023-10-14] MEDS: ASCORBIC ACID 500 MG TAB PO SCH ×2 (10:23→22:13)
[2023-10-14] MEDS: MULTIPLE VITAMIN TAB PO SCH (10:24)
[2023-10-14] MEDS: ZINC SULFATE 220mg CAP or TAB PO SCH (10:24)
[2023-10-14] MEDS: ACETAMINOPHEN 325 MG TAB PO PRN (17:21)
[2023-10-15] VITALS (7 sets, daily range): BP systolic 115–190; BP diastolic 46–73; PULSE 71–92; RESP 17–20; TEMP 98.1–98.8; O2SAT 98–100
[2023-10-15] MEDS: cefTRIAXone 1GM/50ML D5W 50 ML IV SCH (05:25)
[2023-10-15] MEDS: glipiZIDE 5 MG TAB PO SCH ×2 (06:37→17:58)
[2023-10-15] MEDS: InsuLIN REG 1unit/0.01ml Soln (100units/ml) SC SCH ×4 (06:41→21:51)
[2023-10-15] MEDS: ACCU-CHEK COMFORT CURVE STRIP VI SCH ×4 (06:42→21:46)
[2023-10-15] MEDS: ASCORBIC ACID 500 MG TAB PO SCH ×2 (10:05→21:49)
[2023-10-15] MEDS: ZINC SULFATE 220mg CAP or TAB PO SCH (10:05)
[2023-10-15] MEDS: MULTIPLE VITAMIN TAB PO SCH (10:05)
[2023-10-15] MEDS ORDERED: ERGOCALCIFEROL 50,000 UNIT(1.25MG) CAP PO SCH (19:15)
[2023-10-15 21:36] LABS: Basophils # (auto) 0.1 10 ^3/uL (0-0.2); Basophils % (auto) 1.1 % (0.0-2.0); Eosinophils # (auto) 0.1 10 ^3/uL (0-0.8); Eosinophils % (auto) 0.8 % (0.0-7.0); Hematocrit 32.9 % (41.0-53.0); Lymphocytes # (auto) 2.6 10 ^3/uL (0.4-5.4); Lymphocytes % (auto) 32.1 % (10.0-50.0); Mean Corpuscular Hemoglobin 32.5 pg (28.0-32.0); Mean Corpuscular Hgb Conc. 33.5 g/dL (32.0-36.0); Mean Corpuscular Volume 96.8 fL (80.0-100.0); Monocytes # (auto) 0.7 10 ^3/uL (0-1.3); Monocytes % (auto) 9.2 % (0.0-12.0); Neutrophils # (auto) 4.6 10 ^3/uL (1.6-8.6); Neutrophils % (auto) 56.8 % (37.0-80.0); Red Cell Distribution Width 17.2 % (11.8-14.3)
[2023-10-15 21:46] LABS: Alanine Aminotransferase 25 U/L (7-40); Albumin 4.5 g/dL (3.2-4.8); Alkaline Phosphatase 101 U/L (46-116); Anion Gap 8 (5-15); Aspartate Aminotransferase 28 U/L (13-40); BUN/Creatinine Ratio 18.8 (10.0-20.0); Bilirubin, Total 0.6 mg/dL (0.2-1.0); Blood Urea Nitrogen 21 mg/dL (9-23); Calcium 9.4 mg/dL (8.7-10.4); Carbon Dioxide 23 mmol/L (20-30); Chloride 105 mmol/L (98-107); Glucose 215 mg/dL (74-106); Potassium 4.3 mmol/L (3.5-5.1); Sodium 136 mmol/L (136-145); Total Protein 7.6 g/dL (5.7-8.2)
[2023-10-15] MEDS: hydrALAZINE HCL 20 MG/ML VL IV PRN (21:48)
[2023-10-16] VITALS (8 sets, daily range): BP systolic 89–150; BP diastolic 42–82; PULSE 82–103; RESP 15–20; TEMP 97.7–98.5; O2SAT 98–100
[2023-10-16] MEDS: ACCU-CHEK COMFORT CURVE STRIP VI SCH ×4 (06:18→22:47)
[2023-10-16] MEDS: cefTRIAXone 1GM/50ML D5W 50 ML IV SCH (06:18)
[2023-10-16] MEDS: glipiZIDE 5 MG TAB PO SCH ×2 (06:19→18:07)
[2023-10-16] MEDS: InsuLIN REG 1unit/0.01ml Soln (100units/ml) SC SCH ×4 (06:36→22:51)
[2023-10-16] MEDS: MULTIPLE VITAMIN TAB PO SCH (09:38)
[2023-10-16] MEDS: FERROUS SULFATE 325mg EC TAB PO SCH (09:38)
[2023-10-16] MEDS: FINASTERIDE 5 MG TAB PO SCH (09:38)
[2023-10-16] MEDS: ASCORBIC ACID 500 MG TAB PO SCH ×2 (09:38→22:47)
[2023-10-16] MEDS: LISINOPRIL 10 MG TAB PO SCH (09:39)
[2023-10-16] MEDS: ZINC SULFATE 220mg CAP or TAB PO SCH (09:44)
[2023-10-16] MEDS ORDERED: CIPR-273 PO (11:37)
[2023-10-17 05:00] VITALS: BP 155/64; PULSE 91; RESP 16; TEMP 97.8; O2SAT 99
[2023-10-17] MEDS: cefTRIAXone 1GM/50ML D5W 50 ML IV SCH (06:00)
[2023-10-17] MEDS: ACCU-CHEK COMFORT CURVE STRIP VI SCH ×4 (06:24→22:00)
[2023-10-17] MEDS: glipiZIDE 5 MG TAB PO SCH ×2 (06:25→17:29)
[2023-10-17] MEDS: InsuLIN REG 1unit/0.01ml Soln (100units/ml) SC SCH ×4 (06:29→22:00)
[2023-10-17 08:10] VITALS: BP 138/66; PULSE 81; RESP 18; TEMP 97.9; O2SAT 98
[2023-10-17] MEDS: FERROUS SULFATE 325mg EC TAB PO SCH (10:51)
[2023-10-17] MEDS: ZINC SULFATE 220mg CAP or TAB PO SCH (10:52)
[2023-10-17] MEDS: MULTIPLE VITAMIN TAB PO SCH (10:52)
[2023-10-17] MEDS: FINASTERIDE 5 MG TAB PO SCH (10:52)
[2023-10-17] MEDS: ASCORBIC ACID 500 MG TAB PO SCH ×2 (10:53→22:00)
[2023-10-17] MEDS: LISINOPRIL 10 MG TAB PO SCH (10:59)
[2023-10-17] MEDS: hydrALAZINE HCL 20 MG/ML VL IV PRN (11:17)
[2023-10-17 12:10] VITALS: BP 165/85; PULSE 81; RESP 18; TEMP 98.1; O2SAT 99
[2023-10-17 16:10] VITALS: BP 131/64; PULSE 84; RESP 18; TEMP 97; O2SAT 96
[2023-10-17 20:00] VITALS: PULSE 88; O2SAT 100
[2023-10-17 22:00] VITALS: BP 130/63; PULSE 88; RESP 16; TEMP 98.1; O2SAT 100
[2023-10-18] MEDS: cefTRIAXone 1GM/50ML D5W 50 ML IV SCH (06:00)
[2023-10-18] MEDS: glipiZIDE 5 MG TAB PO SCH (06:35)
[2023-10-18] MEDS: ACCU-CHEK COMFORT CURVE STRIP VI SCH (06:36)
[2023-10-18] MEDS: InsuLIN REG 1unit/0.01ml Soln (100units/ml) SC SCH (06:36)
[2023-10-18] MEDS ORDERED: LIDOCAINE 2%HCL (LOCAL ANESTH.) INJ 20ML MDV ONE (07:47)
[2023-10-18] MEDS ORDERED: IODIXANOL 320MG/ML 100ML BTL IV ONE ×2 (07:47→08:57)
== END 2023-10-18 07:24 | DRG 690 ==
LOC: ER 00:32 → EDBD 00:32 → TELE 06:17 → TELE-WESTW 10:34 → WEST WING 10-15 22:00
PROVIDERS: ADMIT Internal Medicine; ATTEND Internal Medicine Geriatric Medicine
DX: N39.0 Urinary tract infection, site not specified (principal); Z59.00 Homelessness unspecified; E11.65 Type 2 diabetes mellitus with hyperglycemia; D64.9 Anemia, unspecified; E78.5 Hyperlipidemia, unspecified; I10 Essential (primary) hypertension; N40.1 Benign prostatic hyperplasia with lower urinary tract symptoms
CPT/HCPCS: 36415; 74177; 76705; 80053; 81001; 82962; 83605; 83690; 84484; 85025; 87040; 87086; 87088; 87186; 93005; 96365; 96375; 97163; G0378; J0696; J1815; J1956; J2405; J3490; Q9967

== ENCOUNTER 2024-02-01 06:15 | Inpatient (IN) | payer MEDICARE, MEDICAID ==
[~2024-02-01] VITALS: Ht 162.6 cm; Wt 71.0 kg
[~2024-02-01 06:15] MED LIST changes: -CEFP200T15 PO; +CIPR-273 PO; -IBUP-1456 PO; -LEVO500T31 PO; -MUPI2CRE17 EX; -NAP500T PO; -NITR0.4S29 SL; -OXY5T PO; -SILD50TA42 PO; -TRIA0.5C TOP
[2024-02-01 08:00] VITALS: PULSE 87; RESP 14; O2SAT 99
[2024-02-01] MEDS: cloNIDine HCL 0.1 MG TAB PO ONE (08:13)
[2024-02-01] MEDS: SODIUM CHLORIDE 0.9% 1,000 ML IV ONE (08:14)
[2024-02-01] MEDS: ASPirin 81 mg TAB PO ONE (08:20)
[2024-02-01 08:52] LABS: Basophils # (auto) 0.2 10 ^3/uL (0-0.2); Basophils % (auto) 1.4 % (0.0-2.0); Eosinophils # (auto) 0.2 10 ^3/uL (0-0.8); Eosinophils % (auto) 1.3 % (0.0-7.0); Hematocrit 36.6 % (41.0-53.0); Hemoglobin 12.2 g/dL (13.5-17.5); Lymphocytes # (auto) 4.1 10 ^3/uL (0.4-5.4); Lymphocytes % (auto) 35.9 % (10.0-50.0); Mean Corpuscular Hgb Conc. 33.2 g/dL (32.0-36.0); Mean Corpuscular Volume 96.5 fL (80.0-100.0); Monocytes # (auto) 0.8 10 ^3/uL (0-1.3); Monocytes % (auto) 6.6 % (0.0-12.0); Neutrophils # (auto) 6.3 10 ^3/uL (1.6-8.6); Neutrophils % (auto) 54.8 % (37.0-80.0); Nucleated Red Blood Cells % 0.1 %; Red Cell Distribution Width 14.5 % (11.8-14.3); White Blood Cell 11.5 10^3/uL (4.4-10.8)
[2024-02-01 09:09] LABS: Alanine Aminotransferase 18 U/L (7-40); Albumin 4.4 g/dL (3.2-4.8); Alkaline Phosphatase 85 U/L (46-116); Anion Gap 9 (5-15); Aspartate Aminotransferase 50 U/L (13-40); BUN/Creatinine Ratio 21.3 (10.0-20.0); Blood Urea Nitrogen 23 mg/dL (9-23); Carbon Dioxide 19 mmol/L (20-30); Chloride 109 mmol/L (98-107); Glucose 313 mg/dL (74-106); Potassium 3.5 mmol/L (3.5-5.1); Sodium 137 mmol/L (136-145)
[2024-02-01 09:10] LABS: Bilirubin, Total 1.8 mg/dL (0.2-1.0); Total Protein 7.7 g/dL (5.7-8.2)
[2024-02-01 11:32] LABS: INR 1.05 (0.9-1.15); Partial Thromboplastin Time 23.9 SEC (24.5-34.5)
[2024-02-01] MEDS ORDERED: ERGOCALCIFEROL 50,000 UNIT(1.25MG) CAP PO SCH (12:00)
[2024-02-01] MEDS: SODIUM CHLORIDE 0.9% 1,000 ML IV SCH (12:52)
[2024-02-01] MEDS: hydrALAZINE HCL 20 MG/ML VL IV ONE (13:12)
[2024-02-01] MEDS: LOSARTAN POTASSIUM 25 MG TAB PO ONE (13:15)
[2024-02-01] MEDS: ENOXAPARIN SOD 40 MG/0.4 ML SYRINGE SC SCH (13:18)
[2024-02-01 14:45] LABS: Magnesium 1.8 mg/dL (1.6-2.6)
[2024-02-01 14:47] LABS: Phosphorus 3.2 mg/dL (2.4-5.1)
[2024-02-01 15:00] LABS: Blood Alcohol < 3.0 mg/dL (<10)
[2024-02-01 17:07] LABS: Urine Bacteria NONE SEEN /hpf (None Seen); Urine Blood TRACE /uL (Negative); Urine Clarity Clear (Clear); Urine Color Colorless (Yellow); Urine Protein, UAD 2+ (Negative); Urine Specific Gravity 1.018 (1.001-1.035); Urine WBC <1 /hpf (0 - 3); Urine pH 6.5 (5.0-8.0)
[2024-02-01 17:19] LABS: Amphetamine Screen, Urine Neg (NEGATIVE)
[2024-02-01 17:20] LABS: Barbiturate Scree,Urine Neg (NEGATIVE); Benzodiazephine Screen, Urine Neg (NEGATIVE); Cannabinoid Screen, Urine Neg (NEGATIVE); Cocaine Screen, Urine Neg (NEGATIVE); Opiate Scree,Urine Neg (NEGATIVE); Phencyclidine Screen, Urine Neg (NEGATIVE)
[2024-02-01] MEDS: ACCU-CHEK COMFORT CURVE STRIP VI SCH (17:23)
[2024-02-01] MEDS: hydrALAZINE HCL 20 MG/ML VL IV PRN (17:31)
[2024-02-01] MEDS: InsuLIN REG 1unit/0.01ml Soln (100units/ml) SC SCH ×2 (17:31→22:00)
[2024-02-01 19:40] VITALS: PULSE 82; O2SAT 98
[2024-02-01] MEDS ORDERED: LORazepam 2MG/ML-1ML VIAL IV PRN (20:15)
[2024-02-01 20:42] LABS: Triglycerides 124 mg/dL (< 150)
[2024-02-01 20:43] LABS: LDL Cholesterol 116 mg/dL (< 100)
[2024-02-01 20:44] LABS: HDL Cholesterol 45 mg/dL (40-59)
[2024-02-01 20:45] LABS: Cholesterol 176 mg/dL (< 200)
[2024-02-01] MEDS: ENOXAPARIN SOD 80 MG/0.8ML SYRINGE SC SCH (22:00)
[2024-02-01] MEDS: levETIRAcetam 500 MG TAB PO SCH (22:41)
[2024-02-01] MEDS: DOCUSATE SOD 100 MG CAP PO SCH (22:41)
[2024-02-01] MEDS: CARVEDILOL 3.125 MG TAB PO SCH (22:43)
[2024-02-01] MEDS: ATORVASTATIN 20 MG TAB PO SCH (22:43)
[2024-02-02 05:58] LABS: Basophils # (auto) 0 10 ^3/uL (0-0.2); Basophils % (auto) 0.8 % (0.0-2.0); Eosinophils # (auto) 0 10 ^3/uL (0-0.8); Eosinophils % (auto) 0.6 % (0.0-7.0); Hemoglobin 10.8 g/dL (13.5-17.5); Lymphocytes # (auto) 2.4 10 ^3/uL (0.4-5.4); Lymphocytes % (auto) 38.7 % (10.0-50.0); Mean Corpuscular Hemoglobin 32.1 pg (28.0-32.0); Mean Corpuscular Hgb Conc. 33.6 g/dL (32.0-36.0); Mean Corpuscular Volume 95.5 fL (80.0-100.0); Monocytes # (auto) 0.5 10 ^3/uL (0-1.3); Neutrophils # (auto) 3.2 10 ^3/uL (1.6-8.6); Neutrophils % (auto) 51.9 % (37.0-80.0); Nucleated Red Blood Cells % 0.2 %; Red Blood Cells 3.35 10^6/uL (4.5-5.90); Red Cell Distribution Width 14.6 % (11.8-14.3); White Blood Cell 6.1 10^3/uL (4.4-10.8)
[2024-02-02 07:10] LABS: Alanine Aminotransferase 13 U/L (7-40); Albumin 3.8 g/dL (3.2-4.8); Alkaline Phosphatase 67 U/L (46-116); Anion Gap 10 (5-15); Aspartate Aminotransferase 31 U/L (13-40); BUN/Creatinine Ratio 18.1 (10.0-20.0); Blood Urea Nitrogen 21 mg/dL (9-23); Calcium 8.9 mg/dL (8.5-10.1); Carbon Dioxide 19 mmol/L (20-30); Chloride 114 mmol/L (98-107); Glucose 319 mg/dL (74-106); Potassium 3.6 mmol/L (3.5-5.1); Sodium 143 mmol/L (136-145)
[2024-02-02 07:11] LABS: Bilirubin, Total 1.2 mg/dL (0.2-1.0); Total Protein 6.3 g/dL (5.7-8.2)
[2024-02-02 08:15] VITALS: PULSE 69; RESP 16; O2SAT 98
[2024-02-02] MEDS: GABAPENTIN 300 MG CAP PO SCH (09:41)
[2024-02-02] MEDS: ASPirin 81 mg TAB PO SCH (09:41)
[2024-02-02] MEDS: LOSARTAN POTASSIUM 25 MG TAB PO SCH (09:42)
[2024-02-02] MEDS: FINASTERIDE 5 MG TAB PO SCH (09:42)
[2024-02-02] MEDS: FERROUS SULFATE 325mg EC TAB PO SCH (09:42)
[2024-02-02] MEDS: DEXTROSE (50%) 50ML SYRG IV PRN (16:36)
[2024-02-02] MEDS ORDERED: ATORVASTATIN 20 MG TAB PO SCH (22:00)
[2024-02-02 23:50] VITALS: BP 159/98; PULSE 86; RESP 18; O2SAT 97
[2024-02-02 23:52] VITALS: PULSE 86; RESP 18; O2SAT 99
[2024-02-03] VITALS (10 sets, daily range): BP systolic 100–148; BP diastolic 45–110; PULSE 71–85; RESP 12–20; TEMP 97.3–98.1; O2SAT 96–100
[2024-02-03 05:41] LABS: Basophils # (auto) 0 10 ^3/uL (0-0.2); Basophils % (auto) 0.7 % (0.0-2.0); Eosinophils # (auto) 0.1 10 ^3/uL (0-0.8); Eosinophils % (auto) 1.4 % (0.0-7.0); Hematocrit 31.3 % (41.0-53.0); Hemoglobin 10.5 g/dL (13.5-17.5); Lymphocytes # (auto) 2.4 10 ^3/uL (0.4-5.4); Lymphocytes % (auto) 37.3 % (10.0-50.0); Mean Corpuscular Hemoglobin 32.7 pg (28.0-32.0); Mean Corpuscular Hgb Conc. 33.6 g/dL (32.0-36.0); Mean Corpuscular Volume 97.5 fL (80.0-100.0); Monocytes # (auto) 0.5 10 ^3/uL (0-1.3); Monocytes % (auto) 8.3 % (0.0-12.0); Neutrophils # (auto) 3.3 10 ^3/uL (1.6-8.6); Neutrophils % (auto) 52.3 % (37.0-80.0); Nucleated Red Blood Cells % 0.1 %; Red Cell Distribution Width 14.8 % (11.8-14.3); White Blood Cell 6.4 10^3/uL (4.4-10.8)
[2024-02-03 05:58] LABS: Alanine Aminotransferase 12 U/L (7-40); Albumin 3.5 g/dL (3.2-4.8); Alkaline Phosphatase 65 U/L (46-116); Anion Gap 9 (5-15); Aspartate Aminotransferase 30 U/L (13-40); BUN/Creatinine Ratio 20.6 (10.0-20.0); Blood Urea Nitrogen 20 mg/dL (9-23); Calcium 8.9 mg/dL (8.7-10.4); Carbon Dioxide 18 mmol/L (20-30); Chloride 115 mmol/L (98-107); Glucose 238 mg/dL (74-106); Magnesium 1.9 mg/dL (1.6-2.6); Potassium 3.5 mmol/L (3.5-5.1); Sodium 142 mmol/L (136-145)
[2024-02-03 05:59] LABS: Total Protein 6.3 g/dL (5.7-8.2)
[2024-02-03 10:49] LABS: Folate (Folic Acid) > 24.00 ng/mL (>5.38)
[2024-02-03 10:51] LABS: Free T4 (Free Thyroxine) 1.47 ng/dL (0.89-1.76)
[2024-02-03] MEDS: LIDOCAINE 2%HCL (LOCAL ANESTH.) INJ 10ml MDV ONE (15:00)
[2024-02-03] MEDS: IODIXANOL 320MG/ML 100ML BTL IV ONE (15:01)
[2024-02-03] MEDS: VERAPAMIL 2.5MG/ML INJ 2ML VIAL IV ONE (15:15)
[2024-02-03] MEDS: ANGIOMAX 250 MG VIAL IV ONE (15:15)
[2024-02-03] MEDS: fentaNYL CITRATE 100 MCG/2 ML VL ONE (15:15)
[2024-02-03] MEDS: HEPARIN SODIUM (PORCINE) 5000 UNITS/ML 1ML VIAL ONE (15:15)
[2024-02-03] MEDS: MIDAZOLAM HCL 2MG/2ML 2ml VIAL (1mg/ml) ONE (15:15)
[2024-02-03] MEDS: SODIUM CHL 0.9% 50 ML ONE (15:16)
[2024-02-03] MEDS: NOREPINEPHRINE 8 MG/250ML KIT 250 ML IV ONE (16:20)
[2024-02-03] MEDS: ASPirin 325 MG TAB PO ONE (17:10)
[2024-02-03] MEDS: SODIUM CHLORIDE 0.9% 1,000 ML IV SCH (17:10)
[2024-02-03] MEDS: CLOPIDOGREL BISULFATE 75 MG TAB PO ONE (17:11)
[2024-02-03] MEDS: ATORVASTATIN 20 MG TAB PO SCH (21:04)
[2024-02-03] MEDS: ENOXAPARIN SOD 60 MG/0.6 ML SYRINGE SC SCH (21:05)
[2024-02-04] VITALS (8 sets, daily range): BP systolic 133–140; BP diastolic 50–64; PULSE 73–79; RESP 16–20; TEMP 97.3–98.7; O2SAT 93–98
[2024-02-04] MEDS: ONDANSETRON HCL 4 MG/2 ML VIAL IV PRN (06:29)
[2024-02-04] MEDS: MORPHINE SULFATE INJ 2 MG/ml SYRG IV PRN (06:30)
[2024-02-04 06:42] LABS: Basophils # (auto) 0.1 10 ^3/uL (0-0.2); Basophils % (auto) 0.8 % (0.0-2.0); Eosinophils # (auto) 0.1 10 ^3/uL (0-0.8); Eosinophils % (auto) 1.7 % (0.0-7.0); Hematocrit 30.5 % (41.0-53.0); Hemoglobin 9.9 g/dL (13.5-17.5); Lymphocytes # (auto) 2.6 10 ^3/uL (0.4-5.4); Lymphocytes % (auto) 32.5 % (10.0-50.0); Mean Corpuscular Hemoglobin 32.4 pg (28.0-32.0); Mean Corpuscular Hgb Conc. 32.3 g/dL (32.0-36.0); Mean Corpuscular Volume 100.4 fL (80.0-100.0); Monocytes # (auto) 0.5 10 ^3/uL (0-1.3); Monocytes % (auto) 6.4 % (0.0-12.0); Neutrophils # (auto) 4.6 10 ^3/uL (1.6-8.6); Neutrophils % (auto) 58.6 % (37.0-80.0); Nucleated Red Blood Cells % 0.1 %; Red Blood Cells 3.04 10^6/uL (4.5-5.90); Red Cell Distribution Width 15.4 % (11.8-14.3); White Blood Cell 7.9 10^3/uL (4.4-10.8)
[2024-02-04 06:56] LABS: Alanine Aminotransferase 12 U/L (7-40); Albumin 3.2 g/dL (3.2-4.8); Alkaline Phosphatase 54 U/L (46-116); Anion Gap 8 (5-15); Aspartate Aminotransferase 34 U/L (13-40); BUN/Creatinine Ratio 17.1 (10.0-20.0); Blood Urea Nitrogen 14 mg/dL (9-23); Calcium 8.3 mg/dL (8.5-10.1); Carbon Dioxide 17 mmol/L (20-30); Chloride 119 mmol/L (98-107); Glucose 208 mg/dL (74-106); Potassium 3.3 mmol/L (3.5-5.1); Sodium 144 mmol/L (136-145)
[2024-02-04 06:57] LABS: Total Protein 5.7 g/dL (5.7-8.2)
[2024-02-04 07:07] LABS: RPR Non Reactive (Non Reactive)
[2024-02-04] MEDS: CLOPIDOGREL BISULFATE 75 MG TAB PO SCH (09:46)
[2024-02-04] MEDS ORDERED: CLOP75TA70 PO (10:27)
[2024-02-04] MEDS ORDERED: ATOR40TA52 PO (10:27)
[2024-02-04] MEDS ORDERED: KEP500T PO (10:27)
[2024-02-04] MEDS ORDERED: CARV6.2551 PO (10:27)
[2024-02-04] MEDS ORDERED: PANT40TA2 PO (10:27)
[2024-02-04] MEDS ORDERED: ASPI-325 PO (10:27)
[2024-02-05 05:00] VITALS: BP 174/63; PULSE 73; RESP 18; TEMP 98.1; O2SAT 97
[2024-02-05 08:00] VITALS: PULSE 74; O2SAT 98
[2024-02-05 09:00] VITALS: BP 156/68; PULSE 74; RESP 16; TEMP 98; O2SAT 95
[2024-02-05 12:34] VITALS: BP 136/49; PULSE 78; RESP 18; TEMP 97.6; O2SAT 97
[2024-02-05 13:00] VITALS: BP 122/50; PULSE 75; RESP 18; TEMP 98; O2SAT 97
== END 2024-02-05 17:40 | disposition home health service (06) | DRG 321 ==
LOC: EDBD 06:15 → ER 06:15 → TELE 13:10 → TELE-WESTW 02-02 23:04
PROVIDERS: ADMIT Internal Medicine; ATTEND Nurse Practitioner Family
PROC: 027034Z Dilation of Coronary Artery, One Artery with Drug-eluting Intraluminal Device, Percutaneous Approach (ICD-10-PCS; principal; 2024-02-03)
PROC: 4A033BC Measurement of Arterial Pressure, Coronary, Percutaneous Approach (ICD-10-PCS; 2024-02-03)
PROC: 4A023N7 Measurement of Cardiac Sampling and Pressure, Left Heart, Percutaneous Approach (ICD-10-PCS; 2024-02-03)
PROC: B211YZZ Fluoroscopy of Multiple Coronary Arteries using Other Contrast (ICD-10-PCS; 2024-02-03)
PROC: B215YZZ Fluoroscopy of Left Heart using Other Contrast (ICD-10-PCS; 2024-02-03)
DX: I21.4 Non-ST elevation (NSTEMI) myocardial infarction (principal); E11.10 Type 2 diabetes mellitus with ketoacidosis without coma; G93.41 Metabolic encephalopathy; I16.0 Hypertensive urgency; D72.829 Elevated white blood cell count, unspecified; E11.42 Type 2 diabetes mellitus with diabetic polyneuropathy; E78.5 Hyperlipidemia, unspecified; E66.01 Morbid (severe) obesity due to excess calories; I48.91 Unspecified atrial fibrillation; M17.12 Unilateral primary osteoarthritis, left knee; G40.909 Epilepsy, unspecified, not intractable, without status epilepticus; F03.90 Unspecified dementia, unspecified severity, without behavioral disturbance, psychotic disturbance, mood disturbance, and anxiety; I25.10 Atherosclerotic heart disease of native coronary artery without angina pectoris; Z87.891 Personal history of nicotine dependence; Z79.899 Other long term (current) drug therapy; Z79.84 Long term (current) use of oral hypoglycemic drugs; Z79.82 Long term (current) use of aspirin; Z74.01 Bed confinement status; Z83.3 Family history of diabetes mellitus; Z82.49 Family history of ischemic heart disease and other diseases of the circulatory system; Z82.5 Family history of asthma and other chronic lower respiratory diseases; Z82.0 Family history of epilepsy and other diseases of the nervous system; Z80.8 Family history of malignant neoplasm of other organs or systems; Z81.8 Family history of other mental and behavioral disorders; Z82.62 Family history of osteoporosis; Z80.1 Family history of malignant neoplasm of trachea, bronchus and lung; Z80.3 Family history of malignant neoplasm of breast; Z82.3 Family history of stroke; Z80.42 Family history of malignant neoplasm of prostate; Z80.0 Family history of malignant neoplasm of digestive organs; Z86.73 Personal history of transient ischemic attack (TIA), and cerebral infarction without residual deficits; Z68.26 Body mass index [BMI] 26.0-26.9, adult
CPT/HCPCS: 36415; 70551; 71046; 72141; 74176; 80053; 80061; 80307; 80320; 81001; 82010; 82140; 82607; 82746; 82962; 83036; 83735; 84100; 84439; 84443; 84484; 85025; 85379; 85610; 85730; 86592; 92941; 93005; 93306; 93458; 93571; 93886; 96361; 96374; 97110; 97116; 97163; 97530; 99152; C1874; G0378; J1815; J2001; J2250; J2405; Q9967